=== PATIENT | male | born 1965 | race African-American/Black ===

== ENCOUNTER 2017-11-10 10:40 | Inpatient (IN) ==
[2017-11-12 12:55] VITALS: BP 118/83
== END 2017-11-12 15:35 | disposition home or self-care, planned readmission (81) | DRG 847 ==
LOC: N.4E 10:40
PROVIDERS: ADMIT Specialist; ATTEND Specialist

== ENCOUNTER 2017-11-24 07:00 | Inpatient (IN) ==
[2017-11-24 10:48] LABS: Basophils % 0.6 % (0.0-0.8); Eosinophils # 0.1 10*3/uL (0.0-0.87); Eosinophils % 1.4 % (0.00-10.9); Hematocrit 37.1 VOL% (42.0-52.0); Hemoglobin 11.8 GM/DL (14.0-18.0); Lymphocytes % 39.6 % (21.2-54.2); Mean Corpuscular HGB Conc 31.8 GM/DL (32-36); Mean Corpuscular Hemoglobin 27 PG (27-34); Mean Corpuscular Volume 84.5 FL (87-102); Mean Platelet Volume 10.5 FL (9.6-12.0); Monocytes # 0.4 10*3/uL (0.11-0.8); Monocytes % 7.5 % (1.7-12.7); Neutrophils # 2.6 10*3/uL (1.4-7.4); Neutrophils % 50.9 % (38.7-73.9); Platelet Count 382 T/CUMM (130-400); Red Blood Count 4.39 MC/CUMM (3.8-5.5); Red Cell Distribution Width 17.1 % (9.3-17.3); White Blood Count 5.1 T/CUMM (4-12)
[2017-11-24 11:06] LABS: Albumin 3.6 G/DL (3.4-5.0); Bilirubin,Total 0.5 MG/DL (0.2-1.0); Calcium 8.7 MG/DL (8.5-10.1); Osmolality,Calculated 274.7 MOS/KG (273-304); Potassium 3.7 MMOL/L (3.5-5.1)
[2017-11-24 11:11] LABS: Uric Acid 8.5 MG/DL (3.5-7.2)
[2017-11-24] MEDS ORDERED: GRANISETRON 1 MG/1 ML VIAL IV ONE (12:00)
[2017-11-24] MEDS ORDERED: DEXAMETHASONE 10 MG/1 ML VIAL IV ONE (12:00)
[2017-11-24] MEDS ORDERED: OXALIPLATIN 170 MG in DEXTROSE 5% 250 ML IV ONE (12:30)
[2017-11-24] MEDS ORDERED: LEUCOVORIN INJ 700 MG in DEXTROSE 5% 250 ML IV ONE (12:30)
[2017-11-24] MEDS ORDERED: FLUOROURACIL 800 MG in SYRINGE 1 EACH IV ONE (12:30)
[2017-11-24 15:21] LABS: Apearance,Urine CLEAR (Clear); Bilirubin,Urine Negative (Negative); Blood, Urine Negative (Negative); Glucose,Urine (UA) Negative (Negative); Ketones,Urine Negative (Negative); Mucus,Urine Occasional /LPF (Occasional); Nitrite,Urine Negative (Negative); Protein,Urine Negative; RBC,Urine 1 /HPF (0-4); Urine Color Yellow (Yellow); Urine Specific Gravity 1.009 (1.001-1.035); Urine Urobilinogen < 2.0 EU/DL (0.2-1.0); WBC,Urine <1 /HPF (0-6)
[2017-11-24] MEDS: FLUOROURACIL 2,400 MG in SODIUM CHLORIDE 0.9% 1,000 ML IV SCH (16:56)
[2017-11-25] MEDS: FLUOROURACIL 2,400 MG in SODIUM CHLORIDE 0.9% 1,000 ML IV SCH (18:36)
[2017-11-26 15:40] VITALS: BP 129/80
[2017-11-26] MEDS ORDERED: HEPARIN LOCK FLUSH 500 UNIT/5 ML SYRINGE IV ONE (16:51)
[2017-11-26] MEDS ORDERED: HEPARIN LOCK FLUSH 500 UNIT/5 ML SYRINGE IV PRN (17:04)
== END 2017-11-26 17:03 | disposition home or self-care (01) | DRG 847 ==
LOC: EDSTATUS 07:00 → N.4E 08:10
PROVIDERS: ADMIT Specialist; ATTEND Specialist

== ENCOUNTER 2020-11-26 18:55 | Inpatient (IN) ==
[2020-11-26] MEDS ORDERED: SODIUM CHLORIDE 0.9% 1,000 ML IV STA ×2 (20:23→22:30)
[2020-11-26] MEDS ORDERED: AZITHROMYCIN INJ 500 MG in SODIUM CHLORIDE 0.9% 250 ML IV STA (20:25)
[2020-11-26 21:02] LABS: ABG HCO3 21.8 MMOL/L (20-26); ABG Oxygen Saturation 93.6 % (95-100); ABG PCO2 33.8 MM HG (35-48); ABG PH 7.402 (7.35-7.45); ABG PO2 72.3 MM HG (80-95); ABG TCO2 18.9 MMOL/L (23-27)
[2020-11-26 21:45] LABS: Basophils % 0.2 % (0.0-0.8); Eosinophils % 0.1 % (0.00-10.9); Hematocrit 37.2 VOL% (42.0-52.0); Hemoglobin 11.8 GM/DL (14.0-18.0); Immature Granulocytes % 6.5 %; Immature Granulocytes Absolute 1.14 #; Lymphocytes # 2.7 10*3/uL (1.4-4.0); Lymphocytes % 15.4 % (21.2-54.2); Mean Corpuscular HGB Conc 31.7 GM/DL (32-36); Mean Corpuscular Volume 87.1 FL (87-102); Mean Platelet Volume 10.5 FL (9.6-12.0); Monocytes % 4.8 % (1.7-12.7); NRBC # 0.43 10*3/uL; Platelet Count 447 T/CUMM (130-400); Red Blood Count 4.27 MC/CUMM (3.8-5.5); Red Cell Distribution Width 14.7 % (9.3-17.3); White Blood Count 17.6 T/CUMM (4-12)
[2020-11-26 22:05] LABS: PT Patient Result 11.5 SECS (10.5-12.0); Partial Thromboplastin Time 23.6 SECS (23.9-33.8)
[2020-11-26 22:17] LABS: Albumin 2.9 G/DL (3.4-5.0); Calcium 9.1 MG/DL (8.5-10.1); Osmolality,Calculated 304.4 MOS/KG (273-304); Total Protein 9.1 G/DL (6.4-8.2)
[2020-11-26 22:23] LABS: Band Neutrophils 1 % (0-10); Lymphocytes 17 % (20-55); Metamyelocytes 2 %; Nucleated Red Blood Cells 2 (0-5); Segmented Neutrophils 76 % (50-85); Total Cells Counted 100
[2020-11-26 22:25] LABS: Hypochromasia 1+; Platelet Estimate Increased; Reactive Lymphocytes 1+
[2020-11-26] MEDS ORDERED: DEXAMETHASONE 10 MG/1 ML VIAL IV ONE (22:30)
[2020-11-26] MEDS ORDERED: ENOXAPARIN 30 MG/0.3 ML SYRINGE SUBCUT STA (22:31)
[2020-11-26] MEDS ORDERED: ONDANSETRON 4 MG/2 ML VIAL IV PRN (23:23)
[2020-11-26] MEDS ORDERED: ALBUTEROL 2.5 MG/3 ML NEB RESP TX PRN (23:23)
[2020-11-26] MEDS: MEROPENEM 500 MG in SODIUM CHLORIDE 0.9% 100 ML IV SCH (23:30)
[2020-11-27] MEDS: FAMOTIDINE 20 MG/2 ML VIAL IV SCH ×2 (01:40→09:51)
[2020-11-27] MEDS: LACTATED RINGERS 1,000 ML IV SCH ×3 (01:42→18:31)
[2020-11-27 05:45] LABS: Basophils % 0.2 % (0.0-0.8); Hematocrit 33.1 VOL% (42.0-52.0); Hemoglobin 10.5 GM/DL (14.0-18.0); Immature Granulocytes % 5.7 %; Immature Granulocytes Absolute 0.96 #; Lymphocytes # 2.5 10*3/uL (1.4-4.0); Lymphocytes % 14.7 % (21.2-54.2); Mean Corpuscular HGB Conc 31.7 GM/DL (32-36); Mean Corpuscular Volume 88.5 FL (87-102); Mean Platelet Volume 10.5 FL (9.6-12.0); Monocytes % 5.9 % (1.7-12.7); NRBC # 0.35 10*3/uL; Neutrophils % 73.5 % (38.7-73.9); Platelet Count 390 T/CUMM (130-400); Red Blood Count 3.74 MC/CUMM (3.8-5.5); Red Cell Distribution Width 14.6 % (9.3-17.3); White Blood Count 16.8 T/CUMM (4-12)
[2020-11-27 05:55] LABS: Albumin 2.5 G/DL (3.4-5.0); Bilirubin,Total 0.9 MG/DL (0.20-1.00); Calcium 8.7 MG/DL (8.5-10.1); Potassium 4.4 MMOL/L (3.5-5.1); Total Protein 8.6 G/DL (6.4-8.2)
[2020-11-27 06:49] LABS: Band Neutrophils 1 % (0-10); Lymphocytes 19 % (20-55); Metamyelocytes 1 %; Nucleated Red Blood Cells 1 (0-5); Segmented Neutrophils 74 % (50-85); Total Cells Counted 100
[2020-11-27 06:51] LABS: Reactive Lymphocytes 1+
[2020-11-27 06:52] LABS: Hypochromasia 1+; Platelet Estimate Normal
[2020-11-27 06:53] LABS: Giant Platelets Few
[2020-11-27] MEDS: MEROPENEM 500 MG in SODIUM CHLORIDE 0.9% 100 ML IV SCH ×3 (07:34→23:54)
[2020-11-27] MEDS ORDERED: DEXAMETHASONE 10 MG/1 ML VIAL IV SCH (09:00)
[2020-11-27] MEDS ORDERED: ENOXAPARIN 60 MG/0.6 ML SYRINGE SUBCUT SCH (09:00)
[2020-11-27] MEDS ORDERED: PNEUMOCOCCAL VACCINE (13 VALENT) 0.5 ML SYRINGE IM ONE (09:07)
[2020-11-27] MEDS: DEXAMETHASONE 10 MG/1 ML VIAL IV SCH (09:51)
[2020-11-27] MEDS: ASCORBIC ACID 500 MG TABLET PO SCH ×2 (09:52→21:48)
[2020-11-27] MEDS: CETIRIZINE 10 MG TABLET PO SCH (09:52)
[2020-11-27] MEDS: ZINC GLUCONATE 50 MG TABLET PO SCH (09:52)
[2020-11-27] MEDS: CHOLECALCIFEROL 1,000 UNIT TABLET PO SCH (09:52)
[2020-11-27] MEDS: ENOXAPARIN 80 MG/0.8 ML SYRINGE SUBCUT SCH (21:48)
[2020-11-28 05:44] LABS: Basophils % 0.2 % (0.0-0.8); Hematocrit 32.9 VOL% (42.0-52.0); Hemoglobin 10.3 GM/DL (14.0-18.0); Immature Granulocytes % 6.9 %; Lymphocytes # 1.9 10*3/uL (1.4-4.0); Lymphocytes % 9.8 % (21.2-54.2); Mean Corpuscular HGB Conc 31.3 GM/DL (32-36); Mean Corpuscular Volume 88.7 FL (87-102); Mean Platelet Volume 10.9 FL (9.6-12.0); Neutrophils % 78.1 % (38.7-73.9); Platelet Count 290 T/CUMM (130-400); Red Blood Count 3.71 MC/CUMM (3.8-5.5); Red Cell Distribution Width 14.6 % (9.3-17.3)
[2020-11-28 05:57] LABS: Albumin 2.3 G/DL (3.4-5.0); Bilirubin,Total 0.6 MG/DL (0.20-1.00); Calcium 9.2 MG/DL (8.5-10.1); Osmolality,Calculated 301.4 MOS/KG (273-304); Potassium 4.3 MMOL/L (3.5-5.1); Total Protein 8.1 G/DL (6.4-8.2)
[2020-11-28] MEDS: LACTATED RINGERS 1,000 ML IV SCH ×2 (05:58→18:34)
[2020-11-28 05:59] LABS: Ferritin 678.3 ng/ml (26-388)
[2020-11-28 06:15] LABS: Band Neutrophils 1 % (0-10); Lymphocytes 13 % (20-55); Nucleated Red Blood Cells 3 (0-5); Platelet Estimate Normal; Segmented Neutrophils 80 % (50-85); Total Cells Counted 100
[2020-11-28] MEDS: MEROPENEM 500 MG in SODIUM CHLORIDE 0.9% 100 ML IV SCH ×3 (09:10→22:44)
[2020-11-28] MEDS: DEXAMETHASONE 10 MG/1 ML VIAL IV SCH (09:12)
[2020-11-28] MEDS: FAMOTIDINE 20 MG/2 ML VIAL IV SCH (09:12)
[2020-11-28] MEDS: CHOLECALCIFEROL 1,000 UNIT TABLET PO SCH (09:13)
[2020-11-28] MEDS: ZINC GLUCONATE 50 MG TABLET PO SCH (09:13)
[2020-11-28] MEDS: CETIRIZINE 10 MG TABLET PO SCH (09:13)
[2020-11-28] MEDS: ASCORBIC ACID 500 MG TABLET PO SCH ×2 (09:13→20:39)
[2020-11-28] MEDS ORDERED: LORazepam 2 MG/1 ML VIAL IV PRN (09:24)
[2020-11-28] MEDS ORDERED: LORazepam 2 MG/1 ML VIAL ONE (09:25)
[2020-11-28 10:15] LABS: ABG HCO3 23.5 MMOL/L (20-26); ABG Oxygen Saturation 89.2 % (95-100); ABG PCO2 38.2 MM HG (35-48); ABG PH 7.399 (7.35-7.45); ABG PO2 60.6 MM HG (80-95); ABG TCO2 21.4 MMOL/L (23-27); Allen Test Positive; Pt O2 Delivery Device BIPAP
[2020-11-28] MEDS: hydrALAZINE 20 MG/1 ML VIAL IV PRN ×2 (14:10→20:37)
[2020-11-28] MEDS ORDERED: MORPHINE 2 MG/1 ML SYRINGE IV ONE (15:56)
[2020-11-28] MEDS: LORazepam 2 MG/1 ML VIAL IV PRN ×2 (17:15→18:41)
[2020-11-28] MEDS ORDERED: ZIPRASIDONE 20 MG/1 ML VIAL IM ONE ×2 (17:20→18:58)
[2020-11-28] MEDS: ENOXAPARIN 80 MG/0.8 ML SYRINGE SUBCUT SCH (20:37)
[2020-11-29] MEDS: LACTATED RINGERS 1,000 ML IV SCH ×2 (01:45→04:34)
[2020-11-29] MEDS: LORazepam 2 MG/1 ML VIAL IV PRN ×2 (04:44→08:44)
[2020-11-29] MEDS ORDERED: ZIPRASIDONE 20 MG/1 ML VIAL IM ONE (05:15)
[2020-11-29 05:54] LABS: Basophils # 0.1 10*3/uL (0.0-0.2); Basophils % 0.4 % (0.0-0.8); Hematocrit 33.4 VOL% (42.0-52.0); Hemoglobin 11.1 GM/DL (14.0-18.0); Immature Granulocytes % 10.3 %; Immature Granulocytes Absolute 2.11 #; Lymphocytes # 1.5 10*3/uL (1.4-4.0); Lymphocytes % 7.5 % (21.2-54.2); Mean Corpuscular HGB Conc 33.2 GM/DL (32-36); Mean Corpuscular Volume 87.7 FL (87-102); Mean Platelet Volume 10.8 FL (9.6-12.0); Monocytes % 3.5 % (1.7-12.7); NRBC # 1.31 10*3/uL; Neutrophils % 78.3 % (38.7-73.9); Platelet Count 249 T/CUMM (130-400); Red Blood Count 3.81 MC/CUMM (3.8-5.5); Red Cell Distribution Width 14.6 % (9.3-17.3); White Blood Count 20.5 T/CUMM (4-12)
[2020-11-29 06:07] LABS: Bilirubin,Urine Negative (Negative); Blood, Urine Moderate mg/dL (Negative); Glucose,Urine (UA) Negative (Negative); Ketones,Urine Negative (Negative); Nitrite,Urine Negative (Negative); Protein,Urine 30 MG/DL; RBC,Urine 5 /HPF (0-4); Urine Appearance CLEAR (Clear); Urine Color Yellow (Yellow); Urine Specific Gravity 1.017 (1.001-1.035); Urine Urobilinogen < 2.0 EU/DL (0.2-1.0)
[2020-11-29 06:16] LABS: Albumin 2.2 G/DL (3.4-5.0); Bilirubin,Total 1.1 MG/DL (0.20-1.00); Ferritin 581.9 ng/ml (26-388); Osmolality,Calculated 309.3 MOS/KG (273-304); Potassium 3.8 MMOL/L (3.5-5.1); Total Protein 8.2 G/DL (6.4-8.2)
[2020-11-29 06:42] LABS: Band Neutrophils 5 % (0-10); Hypochromasia 3+; Lymphocytes 9 % (20-55); Metamyelocytes 1 %; Nucleated Red Blood Cells 8 (0-5); Platelet Estimate Normal; Segmented Neutrophils 83 % (50-85); Total Cells Counted 100
[2020-11-29] MEDS: MEROPENEM 500 MG in SODIUM CHLORIDE 0.9% 100 ML IV SCH ×2 (08:23→18:06)
[2020-11-29] MEDS: FAMOTIDINE 20 MG/2 ML VIAL IV SCH (08:23)
[2020-11-29] MEDS: CHOLECALCIFEROL 1,000 UNIT TABLET PO SCH (08:24)
[2020-11-29] MEDS: ZINC GLUCONATE 50 MG TABLET PO SCH (08:24)
[2020-11-29] MEDS: DEXAMETHASONE 10 MG/1 ML VIAL IV SCH (08:24)
[2020-11-29] MEDS: ASCORBIC ACID 500 MG TABLET PO SCH ×2 (08:24→21:58)
[2020-11-29] MEDS: CETIRIZINE 10 MG TABLET PO SCH (08:25)
[2020-11-29] MEDS: SODIUM CHLORIDE 0.45% 1,000 ML IV SCH (08:27)
[2020-11-29] MEDS ORDERED: ETOMIDATE 20 MG/10 ML VIAL IV ONE ×2 (09:53→10:07)
[2020-11-29] MEDS ORDERED: MIDAZOLAM 2 MG/2 ML VIAL ONE (09:54)
[2020-11-29] MEDS ORDERED: SUCCINYLCHOLINE 200 MG/10 ML VIAL ONE (09:54)
[2020-11-29] MEDS ORDERED: MIDAZOLAM 2 MG/2 ML VIAL IV ONE (10:06)
[2020-11-29] MEDS ORDERED: ROCURONIUM 100 MG/10 ML VIAL IV ONE ×2 (10:20→10:22)
[2020-11-29] MEDS ORDERED: SUCCINYLCHOLINE 200 MG/10 ML VIAL IV ONE (10:22)
[2020-11-29 11:39] LABS: ABG Base Excess -2.1 MMOL/L (-2.5-2.5); ABG HCO3 26.9 MMOL/L (20-26); ABG Oxygen Saturation 98.3 % (95-100); ABG PO2 173.1 MM HG (80-95)
[2020-11-29 11:40] LABS: ABG PH 7.208 (7.35-7.45)
[2020-11-29] MEDS ORDERED: DEXTROSE 50% 25 GM/50 ML VIAL IV PRN (12:04)
[2020-11-29] MEDS ORDERED: GLUCAGON 1 MG VIAL IM PRN (12:04)
[2020-11-29 14:27] LABS: ABG Base Excess -1.9 MMOL/L (-2.5-2.5); ABG HCO3 27.2 MMOL/L (20-26); ABG Oxygen Saturation 92.7 % (95-100); ABG TCO2 29.3 MMOL/L (23-27); Allen Test Positive; Pt O2 Delivery Device Ventilator
[2020-11-29 14:29] LABS: ABG PCO2 69.6 MM HG (35-48)
[2020-11-29] MEDS: AZITHROMYCIN INJ 500 MG in SODIUM CHLORIDE 0.9% 250 ML IV SCH (15:58)
[2020-11-29] MEDS: MIDAZOLAM 100 MG in SODIUM CHLORIDE 0.9% 80 ML IV PRN (17:17)
[2020-11-29] MEDS: INSULIN REGULAR 100 UNIT/ML SUBCUT SCH (18:43)
[2020-11-29] MEDS: ENOXAPARIN 80 MG/0.8 ML SYRINGE SUBCUT SCH (21:58)
[2020-11-30] MEDS: MIDAZOLAM 100 MG in SODIUM CHLORIDE 0.9% 80 ML IV PRN ×4 (00:01→21:12)
[2020-11-30] MEDS: SODIUM CHLORIDE 0.45% 1,000 ML IV SCH ×3 (01:06→11:13)
[2020-11-30] MEDS: INSULIN REGULAR 100 UNIT/ML SUBCUT SCH ×4 (01:28→17:20)
[2020-11-30] MEDS: MEROPENEM 500 MG in SODIUM CHLORIDE 0.9% 100 ML IV SCH ×3 (01:29→17:13)
[2020-11-30 04:29] LABS: ABG Base Excess -1.7 MMOL/L (-2.5-2.5); ABG Oxygen Saturation 97.8 % (95-100); ABG PCO2 65.3 MM HG (35-48); ABG PH 7.229 (7.35-7.45); ABG TCO2 25.2 MMOL/L (23-27); Allen Test Positive; Pt O2 Delivery Device Ventilator
[2020-11-30 05:18] LABS: Basophils # 0.1 10*3/uL (0.0-0.2); Basophils % 0.3 % (0.0-0.8); Hematocrit 31.4 VOL% (42.0-52.0); Hemoglobin 9.7 GM/DL (14.0-18.0); Immature Granulocytes % 8.6 %; Immature Granulocytes Absolute 1.54 #; Lymphocytes # 1.3 10*3/uL (1.4-4.0); Lymphocytes % 7.3 % (21.2-54.2); Mean Corpuscular HGB Conc 30.9 GM/DL (32-36); Mean Corpuscular Volume 93.5 FL (87-102); Monocytes % 2.7 % (1.7-12.7); NRBC # 0.86 10*3/uL; Neutrophils % 81.1 % (38.7-73.9); Platelet Count 185 T/CUMM (130-400); Red Blood Count 3.36 MC/CUMM (3.8-5.5); Red Cell Distribution Width 15.9 % (9.3-17.3); White Blood Count 17.9 T/CUMM (4-12)
[2020-11-30 05:58] LABS: Calcium 8.5 MG/DL (8.5-10.1); Osmolality,Calculated 316.9 MOS/KG (273-304); Potassium 5.4 MMOL/L (3.5-5.1)
[2020-11-30] MEDS ORDERED: SODIUM POLYSTYRENE SULFATE 15 GM/60 ML BOTTLE PO ONE (07:34)
[2020-11-30 07:54] LABS: Lymphocytes 7 % (20-55); Nucleated Red Blood Cells 2 (0-5); Segmented Neutrophils 93 % (50-85); Total Cells Counted 100
[2020-11-30 07:55] LABS: Hypochromasia 1+
[2020-11-30 07:56] LABS: Platelet Estimate Adequate; Polychromasia Slight; Target Cells Few
[2020-11-30] MEDS: CETIRIZINE 10 MG TABLET PO SCH (08:00)
[2020-11-30] MEDS: ASCORBIC ACID 500 MG TABLET PO SCH ×2 (08:00→20:58)
[2020-11-30] MEDS: DEXAMETHASONE 10 MG/1 ML VIAL IV SCH (08:00)
[2020-11-30] MEDS: CHOLECALCIFEROL 1,000 UNIT TABLET PO SCH (08:00)
[2020-11-30] MEDS: ZINC GLUCONATE 50 MG TABLET PO SCH (08:00)
[2020-11-30] MEDS: FAMOTIDINE 20 MG/2 ML VIAL IV SCH (09:32)
[2020-11-30] MEDS: AZITHROMYCIN INJ 500 MG in SODIUM CHLORIDE 0.9% 250 ML IV SCH (15:44)
[2020-11-30 17:26] LABS: Calcium 8.4 MG/DL (8.5-10.1); Osmolality,Calculated 318.1 MOS/KG (273-304); Potassium 5.8 MMOL/L (3.5-5.1)
[2020-11-30] MEDS ORDERED: SODIUM ZIRCONIUM CYCLOSILICATE 10 GM PACK PO ONE (18:09)
[2020-11-30] MEDS: ENOXAPARIN 80 MG/0.8 ML SYRINGE SUBCUT SCH (20:58)
[2020-12-01] MEDS: INSULIN REGULAR 100 UNIT/ML SUBCUT SCH ×4 (01:26→18:21)
[2020-12-01] MEDS: SODIUM CHLORIDE 0.45% 1,000 ML IV SCH (01:26)
[2020-12-01] MEDS: MEROPENEM 500 MG in SODIUM CHLORIDE 0.9% 100 ML IV SCH ×3 (01:28→18:21)
[2020-12-01 04:24] LABS: Basophils % 0.2 % (0.0-0.8); Hematocrit 29.9 VOL% (42.0-52.0); Hemoglobin 8.8 GM/DL (14.0-18.0); Immature Granulocytes % 8.8 %; Immature Granulocytes Absolute 1.46 #; Lymphocytes # 1.5 10*3/uL (1.4-4.0); Mean Corpuscular HGB Conc 29.4 GM/DL (32-36); Mean Corpuscular Volume 95.5 FL (87-102); Mean Platelet Volume 10.5 FL (9.6-12.0); Monocytes % 3.7 % (1.7-12.7); NRBC # 0.99 10*3/uL; Neutrophils % 78.3 % (38.7-73.9); Platelet Count 166 T/CUMM (130-400); Red Blood Count 3.13 MC/CUMM (3.8-5.5); Red Cell Distribution Width 16.4 % (9.3-17.3); White Blood Count 16.6 T/CUMM (4-12)
[2020-12-01 04:37] LABS: Albumin 1.9 G/DL (3.4-5.0); Bilirubin,Total 0.5 MG/DL (0.20-1.00); Calcium 8.5 MG/DL (8.5-10.1); Osmolality,Calculated 320.1 MOS/KG (273-304); Potassium 5.5 MMOL/L (3.5-5.1)
[2020-12-01 05:15] LABS: Lymphocytes 3 % (20-55); Nucleated Red Blood Cells 10 (0-5); Segmented Neutrophils 94 % (50-85); Total Cells Counted 100
[2020-12-01 05:16] LABS: Platelet Estimate Adequate
[2020-12-01 05:26] LABS: ABG Base Excess -0.6 MMOL/L (-2.5-2.5); ABG HCO3 27.6 MMOL/L (20-26); ABG Oxygen Saturation 98.5 % (95-100); ABG PCO2 66.3 MM HG (35-48); ABG PH 7.238 (7.35-7.45); ABG PO2 147.4 MM HG (80-95); ABG TCO2 29.7 MMOL/L (23-27); Allen Test Positive; Pt O2 Delivery Device Ventilator
[2020-12-01] MEDS: FAMOTIDINE 20 MG/2 ML VIAL IV SCH (08:00)
[2020-12-01] MEDS: ZINC GLUCONATE 50 MG TABLET PO SCH (08:00)
[2020-12-01] MEDS: CHOLECALCIFEROL 1,000 UNIT TABLET PO SCH (08:00)
[2020-12-01] MEDS: CETIRIZINE 10 MG TABLET PO SCH (08:00)
[2020-12-01] MEDS: DEXAMETHASONE 10 MG/1 ML VIAL IV SCH (08:01)
[2020-12-01] MEDS: ASCORBIC ACID 500 MG TABLET PO SCH ×3 (08:01→20:42)
[2020-12-01] MEDS: methylPREDNISolone SOD SUC 40 MG/1 ML VIAL IV SCH ×3 (08:25→20:42)
[2020-12-01] MEDS ORDERED: ASCORBIC ACID 500 MG/1 ML VIAL IV SCH (09:00)
[2020-12-01] MEDS ORDERED: SODIUM ZIRCONIUM CYCLOSILICATE 10 GM PACK PO ONE (11:51)
[2020-12-01] MEDS: MIDAZOLAM 100 MG in SODIUM CHLORIDE 0.9% 80 ML IV PRN ×2 (13:40→21:00)
[2020-12-01] MEDS: AZITHROMYCIN INJ 500 MG in SODIUM CHLORIDE 0.9% 250 ML IV SCH (15:32)
[2020-12-01] MEDS: ENOXAPARIN 80 MG/0.8 ML SYRINGE SUBCUT SCH (20:43)
[2020-12-02] MEDS: MEROPENEM 500 MG in SODIUM CHLORIDE 0.9% 100 ML IV SCH ×2 (00:19→08:00)
[2020-12-02] MEDS: INSULIN REGULAR 100 UNIT/ML SUBCUT SCH ×5 (00:20→23:49)
[2020-12-02] MEDS: methylPREDNISolone SOD SUC 40 MG/1 ML VIAL IV SCH ×4 (01:41→20:26)
[2020-12-02] MEDS: MIDAZOLAM 100 MG in SODIUM CHLORIDE 0.9% 80 ML IV PRN ×4 (01:50→23:47)
[2020-12-02 04:44] LABS: Basophils % 0.1 % (0.0-0.8); Hematocrit 30.4 VOL% (42.0-52.0); Hemoglobin 8.9 GM/DL (14.0-18.0); Immature Granulocytes % 7.6 %; Lymphocytes % 7.1 % (21.2-54.2); Mean Corpuscular HGB Conc 29.3 GM/DL (32-36); Mean Platelet Volume 11.6 FL (9.6-12.0); Monocytes % 2.8 % (1.7-12.7); NRBC # 0.81 10*3/uL; Neutrophils % 82.4 % (38.7-73.9); Platelet Count 204 T/CUMM (130-400); Red Cell Distribution Width 16.2 % (9.3-17.3); White Blood Count 14.5 T/CUMM (4-12)
[2020-12-02 04:53] LABS: ABG Base Excess -1.4 MMOL/L (-2.5-2.5); ABG HCO3 26.7 MMOL/L (20-26); ABG Oxygen Saturation 92.8 % (95-100); ABG PCO2 64.4 MM HG (35-48); ABG PH 7.236 (7.35-7.45); ABG PO2 75.5 MM HG (80-95); ABG TCO2 28.7 MMOL/L (23-27); Allen Test Positive; Pt O2 Delivery Device Ventilator
[2020-12-02 04:59] LABS: Calcium 8.5 MG/DL (8.5-10.1); Osmolality,Calculated 332.9 MOS/KG (273-304); Potassium 5.7 MMOL/L (3.5-5.1)
[2020-12-02 05:15] LABS: Ferritin 600.9 ng/ml (26-388)
[2020-12-02] MEDS: hydrALAZINE 20 MG/1 ML VIAL IV PRN (06:22)
[2020-12-02 07:45] LABS: Anisocytosis 2+; Band Neutrophils 10 % (0-10); Lymphocytes 9 % (20-55); Macrocytosis Slight; Metamyelocytes 2 %; Myelocytes 4 %; Nucleated Red Blood Cells 9 (0-5); Platelet Estimate Normal; Segmented Neutrophils 69 % (50-85); Smudge Cells 1+; Total Cells Counted 100
[2020-12-02] MEDS: CHOLECALCIFEROL 1,000 UNIT TABLET PO SCH (08:00)
[2020-12-02] MEDS: CETIRIZINE 10 MG TABLET PO SCH (08:00)
[2020-12-02] MEDS: ZINC GLUCONATE 50 MG TABLET PO SCH (08:00)
[2020-12-02] MEDS: ASCORBIC ACID 500 MG TABLET PO SCH ×2 (08:00→20:26)
[2020-12-02] MEDS: ACETAMINOPHEN 325 MG TABLET PO PRN ×2 (08:01→18:26)
[2020-12-02] MEDS: FAMOTIDINE 20 MG/2 ML VIAL IV SCH (08:02)
[2020-12-02] MEDS ORDERED: SODIUM POLYSTYRENE SULFATE 15 GM/60 ML BOTTLE PO ONE (09:04)
[2020-12-02 11:03] LABS: HIV Antigen/Antibody Result Nonreactive (Nonreactive)
[2020-12-02] MEDS ORDERED: SODIUM POLYSTYRENE SULFATE 15 GM/60 ML BOTTLE PO PRN (12:44)
[2020-12-02 13:03] LABS: Bilirubin,Urine Negative (Negative); Blood, Urine Moderate mg/dL (Negative); Glucose,Urine (UA) Negative (Negative); Ketones,Urine Negative (Negative); Mucus,Urine Occasional /LPF (Occasional); Nitrite,Urine Negative (Negative); Protein,Urine 30 MG/DL; RBC,Urine 27 /HPF (0-4); Urine Appearance Slightly Hazy (Clear); Urine Color Yellow (Yellow); Urine Specific Gravity 1.014 (1.001-1.035); Urine Urobilinogen < 2.0 EU/DL (0.2-1.0)
[2020-12-02] MEDS: AZITHROMYCIN INJ 500 MG in SODIUM CHLORIDE 0.9% 250 ML IV SCH (15:40)
[2020-12-02] MEDS ORDERED: DEXTROSE 5% IV ONE (20:00)
[2020-12-02] MEDS ORDERED: VANCOMYCIN IV ONE (20:00)
[2020-12-02] MEDS: MEROPENEM 500 MG in SODIUM CHLORIDE 0.9% 50 ML IV SCH (20:28)
[2020-12-03] MEDS: ACETAMINOPHEN 325 MG TABLET PO PRN (00:50)
[2020-12-03] MEDS: methylPREDNISolone SOD SUC 40 MG/1 ML VIAL IV SCH ×4 (02:07→20:14)
[2020-12-03] MEDS ORDERED: IBUPROFEN 600 MG TABLET PO PRN (02:21)
[2020-12-03] MEDS: MEROPENEM 500 MG in SODIUM CHLORIDE 0.9% 50 ML IV SCH (03:34)
[2020-12-03 04:27] LABS: Basophils % 0.1 % (0.0-0.8); Hematocrit 29.3 VOL% (42.0-52.0); Hemoglobin 8.5 GM/DL (14.0-18.0); Immature Granulocytes % 6.6 %; Lymphocytes % 8.3 % (21.2-54.2); Mean Corpuscular Volume 96.1 FL (87-102); Mean Platelet Volume 11.6 FL (9.6-12.0); Monocytes % 8.1 % (1.7-12.7); NRBC # 0.75 10*3/uL; Neutrophils % 76.9 % (38.7-73.9); Platelet Count 206 T/CUMM (130-400); Red Blood Count 3.05 MC/CUMM (3.8-5.5); Red Cell Distribution Width 16.1 % (9.3-17.3); White Blood Count 12.1 T/CUMM (4-12)
[2020-12-03 04:49] LABS: Calcium 8.2 MG/DL (8.5-10.1); Potassium 5.5 MMOL/L (3.5-5.1)
[2020-12-03 05:15] LABS: ABG Base Excess -1.2 MMOL/L (-2.5-2.5); ABG HCO3 27.5 MMOL/L (20-26); ABG PCO2 68.3 MM HG (35-48); ABG PH 7.222 (7.35-7.45); ABG PO2 87.1 MM HG (80-95); ABG TCO2 29.5 MMOL/L (23-27); Allen Test Positive; Pt O2 Delivery Device Ventilator
[2020-12-03] MEDS: INSULIN REGULAR 100 UNIT/ML SUBCUT SCH ×3 (05:49→18:30)
[2020-12-03] MEDS: MIDAZOLAM 100 MG in SODIUM CHLORIDE 0.9% 80 ML IV PRN ×3 (06:31→21:05)
[2020-12-03 06:50] LABS: Lymphocytes 13 % (20-55); Microcytosis 1+; Nucleated Red Blood Cells 14 (0-5); Platelet Estimate Adequate; Segmented Neutrophils 80 % (50-85); Target Cells Few; Total Cells Counted 100
[2020-12-03] MEDS: FAMOTIDINE 20 MG/2 ML VIAL IV SCH (08:36)
[2020-12-03] MEDS: CHOLECALCIFEROL 1,000 UNIT TABLET PO SCH (08:36)
[2020-12-03] MEDS: ZINC GLUCONATE 50 MG TABLET PO SCH (08:37)
[2020-12-03] MEDS: ASCORBIC ACID 500 MG TABLET PO SCH ×2 (08:37→20:14)
[2020-12-03] MEDS: CETIRIZINE 10 MG TABLET PO SCH (08:40)
[2020-12-03] MEDS ORDERED: diphenhydrAMINE 50 MG/1 ML VIAL IV ONE (10:30)
[2020-12-03] MEDS: LEVOFLOXACIN INJ 750 MG/150 ML PREMIX IV SCH (15:49)
[2020-12-03] MEDS ORDERED: MEROPENEM 500 MG in SODIUM CHLORIDE 0.9% 50 ML IV SCH (16:00)
[2020-12-03] MEDS ORDERED: DEXTROSE 5% IV PRN (17:00)
[2020-12-03] MEDS ORDERED: VANCOMYCIN IV PRN (17:00)
[2020-12-04] MEDS: INSULIN REGULAR 100 UNIT/ML SUBCUT SCH ×5 (00:55→23:41)
[2020-12-04] MEDS: methylPREDNISolone SOD SUC 40 MG/1 ML VIAL IV SCH ×4 (01:34→20:48)
[2020-12-04 04:36] LABS: Hematocrit 30.8 VOL% (42.0-52.0); Hemoglobin 9.1 GM/DL (14.0-18.0); Immature Granulocytes % 2.2 %; Immature Granulocytes Absolute 0.19 #; Lymphocytes # 0.4 10*3/uL (1.4-4.0); Lymphocytes % 4.8 % (21.2-54.2); Mean Corpuscular HGB Conc 29.5 GM/DL (32-36); Mean Corpuscular Volume 93.9 FL (87-102); Mean Platelet Volume 11.9 FL (9.6-12.0); Monocytes % 5.5 % (1.7-12.7); NRBC # 0.12 10*3/uL; Neutrophils % 87.5 % (38.7-73.9); Platelet Count 207 T/CUMM (130-400); Red Blood Count 3.28 MC/CUMM (3.8-5.5); Red Cell Distribution Width 15.8 % (9.3-17.3); White Blood Count 8.8 T/CUMM (4-12)
[2020-12-04 04:39] LABS: ABG Base Excess -0.4 MMOL/L (-2.5-2.5); ABG HCO3 24.1 MMOL/L (20-26); ABG Oxygen Saturation 96.8 % (95-100); ABG PCO2 63.2 MM HG (35-48); ABG PH 7.253 (7.35-7.45); ABG PO2 95.6 MM HG (80-95); ABG TCO2 26.1 MMOL/L (23-27)
[2020-12-04 04:55] LABS: Band Neutrophils 2 % (0-10); Lymphocytes 5 % (20-55); Nucleated Red Blood Cells 2 (0-5); Segmented Neutrophils 88 % (50-85); Total Cells Counted 100
[2020-12-04 04:56] LABS: Hypochromasia 1+; Microcytosis 1+; Platelet Estimate Normal; Target Cells Slight
[2020-12-04 05:00] LABS: Calcium 8.4 MG/DL (8.5-10.1); Osmolality,Calculated 343.9 MOS/KG (273-304); Potassium 5.8 MMOL/L (3.5-5.1)
[2020-12-04] MEDS: MIDAZOLAM 100 MG in SODIUM CHLORIDE 0.9% 80 ML IV PRN ×3 (05:00→19:45)
[2020-12-04] MEDS: CETIRIZINE 10 MG TABLET PO SCH (08:25)
[2020-12-04] MEDS: FAMOTIDINE 20 MG/2 ML VIAL IV SCH (08:26)
[2020-12-04] MEDS: ZINC GLUCONATE 50 MG TABLET PO SCH (08:26)
[2020-12-04] MEDS: CHOLECALCIFEROL 1,000 UNIT TABLET PO SCH (08:26)
[2020-12-04] MEDS: ASCORBIC ACID 500 MG TABLET PO SCH ×2 (08:26→20:49)
[2020-12-04] MEDS ORDERED: DEXTROSE 5% IV ONE (13:30)
[2020-12-04] MEDS ORDERED: VANCOMYCIN IV ONE (13:30)
[2020-12-04 23:31] LABS: Fungitell Quantitative Value < 31 pg/mL (<60 pg/mL)
[2020-12-05] MEDS: methylPREDNISolone SOD SUC 40 MG/1 ML VIAL IV SCH ×4 (01:48→20:11)
[2020-12-05] MEDS: MIDAZOLAM 100 MG in SODIUM CHLORIDE 0.9% 80 ML IV PRN ×3 (02:58→15:45)
[2020-12-05 03:18] LABS: ABG Base Excess 1.7 MMOL/L (-2.5-2.5); ABG HCO3 25.9 MMOL/L (20-26); ABG Oxygen Saturation 96.7 % (95-100); ABG PCO2 65.2 MM HG (35-48); ABG PH 7.272 (7.35-7.45); ABG PO2 96.6 MM HG (80-95); ABG TCO2 27.9 MMOL/L (23-27)
[2020-12-05 03:45] LABS: Hematocrit 31.1 VOL% (42.0-52.0); Hemoglobin 9.2 GM/DL (14.0-18.0); Immature Granulocytes % 1.9 %; Immature Granulocytes Absolute 0.14 #; Lymphocytes # 0.4 10*3/uL (1.4-4.0); Lymphocytes % 5.8 % (21.2-54.2); Mean Corpuscular HGB Conc 29.6 GM/DL (32-36); Mean Platelet Volume 12.2 FL (9.6-12.0); Monocytes % 8.3 % (1.7-12.7); NRBC # 0.09 10*3/uL; Platelet Count 202 T/CUMM (130-400); Red Blood Count 3.31 MC/CUMM (3.8-5.5); Red Cell Distribution Width 15.4 % (9.3-17.3); White Blood Count 7.2 T/CUMM (4-12)
[2020-12-05 05:35] LABS: Bilirubin,Total 0.4 MG/DL (0.20-1.00); Calcium 9.1 MG/DL (8.5-10.1); Potassium 5.9 MMOL/L (3.5-5.1); Total Protein 6.6 G/DL (6.4-8.2)
[2020-12-05] MEDS: INSULIN REGULAR 100 UNIT/ML SUBCUT SCH ×3 (05:52→18:24)
[2020-12-05] MEDS: ASCORBIC ACID 500 MG TABLET PO SCH ×2 (08:45→20:10)
[2020-12-05] MEDS: ZINC GLUCONATE 50 MG TABLET PO SCH (08:45)
[2020-12-05] MEDS: CHOLECALCIFEROL 1,000 UNIT TABLET PO SCH (08:45)
[2020-12-05] MEDS: FAMOTIDINE 20 MG/2 ML VIAL IV SCH (08:46)
[2020-12-05] MEDS: CETIRIZINE 10 MG TABLET PO SCH (11:55)
[2020-12-05] MEDS: INSULIN GLARGINE 100 UNIT/ML SUBCUT SCH (11:57)
[2020-12-05] MEDS: LEVOFLOXACIN INJ 750 MG/150 ML PREMIX IV SCH (14:53)
[2020-12-05] MEDS ORDERED: HEPARIN DRIP 25,000 UNITS/500 ML PREMIX IV SCH (18:00)
[2020-12-05] MEDS: MIDAZOLAM 100 MG in DEXTROSE 5% 80 ML IV PRN (23:25)
[2020-12-06] MEDS: INSULIN REGULAR 100 UNIT/ML SUBCUT SCH ×4 (00:06→18:04)
[2020-12-06 02:11] LABS: Hematocrit 29.7 VOL% (42.0-52.0); Hemoglobin 8.8 GM/DL (14.0-18.0); Immature Granulocytes Absolute 0.07 #; Lymphocytes # 0.3 10*3/uL (1.4-4.0); Lymphocytes % 4.2 % (21.2-54.2); Mean Corpuscular HGB Conc 29.6 GM/DL (32-36); Mean Corpuscular Volume 94.6 FL (87-102); Mean Platelet Volume 11.5 FL (9.6-12.0); Monocytes % 4.1 % (1.7-12.7); NRBC # 0.03 10*3/uL; Neutrophils % 90.7 % (38.7-73.9); Platelet Count 183 T/CUMM (130-400); Red Blood Count 3.14 MC/CUMM (3.8-5.5); White Blood Count 7.1 T/CUMM (4-12)
[2020-12-06] MEDS: methylPREDNISolone SOD SUC 40 MG/1 ML VIAL IV SCH ×2 (02:12→08:57)
[2020-12-06 02:48] LABS: Albumin 1.9 G/DL (3.4-5.0); Bilirubin,Total 0.4 MG/DL (0.20-1.00); Calcium 8.6 MG/DL (8.5-10.1); Total Protein 6.4 G/DL (6.4-8.2)
[2020-12-06 03:30] LABS: Hypochromasia Slight; Lymphocytes 2 % (20-55); Nucleated Red Blood Cells 1 (0-5); Platelet Estimate Normal; Segmented Neutrophils 96 % (50-85); Total Cells Counted 100
[2020-12-06 03:31] LABS: Polychromasia Slight; Stomatocytes Slight; Target Cells Few
[2020-12-06 03:32] LABS: Basophilic Stippling Slight
[2020-12-06 03:33] LABS: Howell-Jolly Bodies Slight
[2020-12-06 05:10] LABS: ABG Base Excess 3.8 MMOL/L (-2.5-2.5); ABG HCO3 30.9 MMOL/L (20-26); ABG Oxygen Saturation 96.7 % (95-100); ABG PCO2 61.4 MM HG (35-48); ABG PH 7.319 (7.35-7.45); ABG TCO2 32.7 MMOL/L (23-27); Allen Test Positive; Pt O2 Delivery Device Ventilator
[2020-12-06] MEDS: CHOLECALCIFEROL 1,000 UNIT TABLET PO SCH (08:53)
[2020-12-06] MEDS: ZINC GLUCONATE 50 MG TABLET PO SCH (08:53)
[2020-12-06] MEDS: ASCORBIC ACID 500 MG TABLET PO SCH ×2 (08:54→20:31)
[2020-12-06] MEDS: INSULIN GLARGINE 100 UNIT/ML SUBCUT SCH (08:54)
[2020-12-06] MEDS: FAMOTIDINE 20 MG/2 ML VIAL IV SCH (08:54)
[2020-12-06] MEDS: CETIRIZINE 10 MG TABLET PO SCH (09:00)
[2020-12-06] MEDS ORDERED: VANCOMYCIN INJ 2,250 MG in SODIUM CHLORIDE 0.9% 500 ML IV ONE (12:00)
[2020-12-06] MEDS: MIDAZOLAM 100 MG in DEXTROSE 5% 80 ML IV PRN ×2 (13:22→20:37)
[2020-12-06] MEDS: LEVOFLOXACIN INJ 750 MG/150 ML PREMIX IV SCH (15:17)
[2020-12-06 16:44] LABS: Hematocrit 29.4 VOL% (42.0-52.0); Hemoglobin 8.7 GM/DL (14.0-18.0)
[2020-12-06 17:16] LABS: Herpesvirus 7 IgM Ab by IFA <1:20
[2020-12-06] MEDS ORDERED: methylPREDNISolone SOD SUC 40 MG/1 ML VIAL ONE (19:30)
[2020-12-06] MEDS: methylPREDNISolone SOD SUC 125 MG/2 ML VIAL IV SCH (20:31)
[2020-12-07] MEDS: INSULIN REGULAR 100 UNIT/ML SUBCUT SCH ×5 (00:17→23:56)
[2020-12-07] MEDS: ACETAMINOPHEN 325 MG TABLET PO PRN (01:13)
[2020-12-07] MEDS: MIDAZOLAM 100 MG in DEXTROSE 5% 80 ML IV PRN ×2 (03:41→09:43)
[2020-12-07 04:30] LABS: ABG Base Excess 4.9 MMOL/L (-2.5-2.5); ABG HCO3 28.9 MMOL/L (20-26); ABG Oxygen Saturation 97.2 % (95-100); ABG PCO2 62.1 MM HG (35-48); ABG PH 7.325 (7.35-7.45); ABG TCO2 30.1 MMOL/L (23-27)
[2020-12-07 05:31] LABS: Hemoglobin 8.5 GM/DL (14.0-18.0); Immature Granulocytes % 0.7 %; Immature Granulocytes Absolute 0.05 #; Lymphocytes # 0.4 10*3/uL (1.4-4.0); Lymphocytes % 5.4 % (21.2-54.2); Mean Corpuscular HGB Conc 29.3 GM/DL (32-36); Mean Corpuscular Volume 95.4 FL (87-102); Mean Platelet Volume 12.3 FL (9.6-12.0); Monocytes % 7.5 % (1.7-12.7); NRBC # 0.04 10*3/uL; Neutrophils % 86.4 % (38.7-73.9); Platelet Count 159 T/CUMM (130-400); Red Blood Count 3.04 MC/CUMM (3.8-5.5); Red Cell Distribution Width 14.6 % (9.3-17.3)
[2020-12-07 05:59] LABS: Bilirubin,Total 0.4 MG/DL (0.20-1.00); Calcium 8.7 MG/DL (8.5-10.1); Osmolality,Calculated 333.4 MOS/KG (273-304); Potassium 5.9 MMOL/L (3.5-5.1)
[2020-12-07] MEDS: ZINC GLUCONATE 50 MG TABLET PO SCH (09:07)
[2020-12-07] MEDS: CETIRIZINE 10 MG TABLET PO SCH (09:07)
[2020-12-07] MEDS: CHOLECALCIFEROL 1,000 UNIT TABLET PO SCH (09:07)
[2020-12-07] MEDS: INSULIN GLARGINE 100 UNIT/ML SUBCUT SCH (09:07)
[2020-12-07] MEDS: methylPREDNISolone SOD SUC 125 MG/2 ML VIAL IV SCH (09:08)
[2020-12-07] MEDS: FAMOTIDINE 20 MG/2 ML VIAL IV SCH (09:08)
[2020-12-07] MEDS: ASCORBIC ACID 500 MG TABLET PO SCH ×2 (09:09→21:18)
[2020-12-07] MEDS: DEXTROSE 5% 1,000 ML IV SCH (11:32)
[2020-12-07] MEDS: DEXTROSE 5% IV SCH (15:36)
[2020-12-07] MEDS: VANCOMYCIN IV SCH (15:36)
[2020-12-07] MEDS: LEVOFLOXACIN INJ 750 MG/150 ML PREMIX IV SCH (15:50)
[2020-12-07] MEDS: NYSTATIN 500,000 UNIT/5 ML UDCUP SWISH/SWAL SCH (21:18)
[2020-12-07] MEDS: methylPREDNISolone SOD SUC 40 MG/1 ML VIAL IV SCH (21:18)
[2020-12-08] MEDS: MIDAZOLAM 100 MG in DEXTROSE 5% 80 ML IV PRN ×4 (00:20→21:19)
[2020-12-08 04:10] LABS: Hematocrit 28.4 VOL% (42.0-52.0); Hemoglobin 8.3 GM/DL (14.0-18.0); Immature Granulocytes % 0.7 %; Immature Granulocytes Absolute 0.07 #; Lymphocytes # 1.1 10*3/uL (1.4-4.0); Lymphocytes % 11.1 % (21.2-54.2); Mean Corpuscular HGB Conc 29.2 GM/DL (32-36); Mean Corpuscular Volume 95.6 FL (87-102); Mean Platelet Volume 12.5 FL (9.6-12.0); Monocytes % 8.6 % (1.7-12.7); NRBC # 0.03 10*3/uL; Neutrophils % 79.6 % (38.7-73.9); Platelet Count 148 T/CUMM (130-400); Red Blood Count 2.97 MC/CUMM (3.8-5.5); Red Cell Distribution Width 14.4 % (9.3-17.3)
[2020-12-08 04:16] LABS: ABG Base Excess 7.3 MMOL/L (-2.5-2.5); ABG HCO3 33.5 MMOL/L (20-26); ABG Oxygen Saturation 97.7 % (95-100); ABG PCO2 57.4 MM HG (35-48); ABG PH 7.384 (7.35-7.45); ABG PO2 115.9 MM HG (80-95); ABG TCO2 35.3 MMOL/L (23-27)
[2020-12-08 04:40] LABS: Bilirubin,Total 1.3 MG/DL (0.20-1.00); Calcium 8.7 MG/DL (8.5-10.1); Osmolality,Calculated 333.3 MOS/KG (273-304); Total Protein 6.1 G/DL (6.4-8.2)
[2020-12-08 04:44] LABS: Potassium 4.9 MMOL/L (3.5-5.1)
[2020-12-08] MEDS: INSULIN REGULAR 100 UNIT/ML SUBCUT SCH ×3 (05:24→17:33)
[2020-12-08] MEDS: FAMOTIDINE 20 MG/2 ML VIAL IV SCH (09:37)
[2020-12-08] MEDS: methylPREDNISolone SOD SUC 40 MG/1 ML VIAL IV SCH ×2 (09:37→21:20)
[2020-12-08] MEDS: INSULIN GLARGINE 100 UNIT/ML SUBCUT SCH (09:37)
[2020-12-08] MEDS: CETIRIZINE 10 MG TABLET PO SCH (09:37)
[2020-12-08] MEDS: CHOLECALCIFEROL 1,000 UNIT TABLET PO SCH (09:37)
[2020-12-08] MEDS: ZINC GLUCONATE 50 MG TABLET PO SCH (09:37)
[2020-12-08] MEDS: NYSTATIN 500,000 UNIT/5 ML UDCUP SWISH/SWAL SCH ×4 (09:37→21:20)
[2020-12-08] MEDS: ASCORBIC ACID 500 MG TABLET PO SCH ×2 (09:37→21:20)
[2020-12-08] MEDS: DEXTROSE 5% 1,000 ML IV SCH ×2 (11:22→21:20)
[2020-12-08] MEDS: DEXTROSE 5% IV SCH (11:26)
[2020-12-08] MEDS: VANCOMYCIN IV SCH (11:26)
[2020-12-08] MEDS: LEVOFLOXACIN INJ 750 MG/150 ML PREMIX IV SCH (14:40)
[2020-12-09] MEDS: INSULIN REGULAR 100 UNIT/ML SUBCUT SCH ×5 (00:29→23:53)
[2020-12-09] MEDS: VANCOMYCIN IV SCH ×2 (02:19→22:28)
[2020-12-09] MEDS: DEXTROSE 5% IV SCH ×2 (02:19→22:28)
[2020-12-09 04:17] LABS: ABG Base Excess 6.9 MMOL/L (-2.5-2.5); ABG HCO3 30.7 MMOL/L (20-26); ABG Oxygen Saturation 99.1 % (95-100); ABG PCO2 59.5 MM HG (35-48); ABG PH 7.361 (7.35-7.45); ABG TCO2 31.4 MMOL/L (23-27)
[2020-12-09] MEDS: MIDAZOLAM 100 MG in DEXTROSE 5% 80 ML IV PRN ×3 (04:50→17:59)
[2020-12-09 04:57] LABS: Hematocrit 28.3 VOL% (42.0-52.0); Hemoglobin 8.3 GM/DL (14.0-18.0); Immature Granulocytes Absolute 0.09 #; Lymphocytes # 0.8 10*3/uL (1.4-4.0); Lymphocytes % 8.2 % (21.2-54.2); Mean Corpuscular HGB Conc 29.3 GM/DL (32-36); Mean Platelet Volume 12.4 FL (9.6-12.0); Monocytes % 5.1 % (1.7-12.7); Neutrophils % 85.7 % (38.7-73.9); Platelet Count 145 T/CUMM (130-400); Red Blood Count 2.98 MC/CUMM (3.8-5.5); White Blood Count 9.2 T/CUMM (4-12)
[2020-12-09 05:19] LABS: Albumin 2.1 G/DL (3.4-5.0); Bilirubin,Total 0.4 MG/DL (0.20-1.00); Calcium 8.5 MG/DL (8.5-10.1); Osmolality,Calculated 320.1 MOS/KG (273-304); Potassium 5.2 MMOL/L (3.5-5.1); Total Protein 6.2 G/DL (6.4-8.2)
[2020-12-09] MEDS: DEXTROSE 5% 1,000 ML IV SCH ×2 (05:50→18:01)
[2020-12-09] MEDS: FAMOTIDINE 20 MG/2 ML VIAL IV SCH (08:20)
[2020-12-09] MEDS: methylPREDNISolone SOD SUC 40 MG/1 ML VIAL IV SCH ×2 (08:20→20:04)
[2020-12-09] MEDS: NYSTATIN 500,000 UNIT/5 ML UDCUP SWISH/SWAL SCH ×4 (08:21→20:04)
[2020-12-09] MEDS: CHOLECALCIFEROL 1,000 UNIT TABLET PO SCH (08:22)
[2020-12-09] MEDS: ZINC GLUCONATE 50 MG TABLET PO SCH (08:22)
[2020-12-09] MEDS: ASCORBIC ACID 500 MG TABLET PO SCH ×2 (08:22→20:04)
[2020-12-09] MEDS: INSULIN GLARGINE 100 UNIT/ML SUBCUT SCH (08:23)
[2020-12-09] MEDS: CETIRIZINE 10 MG TABLET PO SCH (08:27)
[2020-12-09] MEDS ORDERED: diphenhydrAMINE 50 MG/1 ML VIAL ONE (09:29)
[2020-12-09] MEDS ORDERED: SUCCINYLCHOLINE 200 MG/10 ML VIAL ONE (09:30)
[2020-12-09] MEDS ORDERED: diphenhydrAMINE 50 MG/1 ML VIAL IV ONE (09:36)
[2020-12-09] MEDS ORDERED: ETOMIDATE 20 MG/10 ML VIAL IV ONE (09:36)
[2020-12-09] MEDS ORDERED: SUCCINYLCHOLINE 200 MG/10 ML VIAL IV ONE (09:36)
[2020-12-09 10:18] LABS: ABG Base Excess 4.1 MMOL/L (-2.5-2.5); ABG HCO3 28.1 MMOL/L (20-26); ABG Oxygen Saturation 96.4 % (95-100); ABG PH 7.272 (7.35-7.45); ABG PO2 96.1 MM HG (80-95); ABG TCO2 30.7 MMOL/L (23-27)
[2020-12-09 10:20] LABS: ABG PCO2 70.7 MM HG (35-48)
[2020-12-09] MEDS: LEVOFLOXACIN INJ 750 MG/150 ML PREMIX IV SCH (15:30)
[2020-12-10] MEDS: MIDAZOLAM 100 MG in DEXTROSE 5% 80 ML IV PRN ×3 (01:10→17:03)
[2020-12-10 04:38] LABS: Hematocrit 24.8 VOL% (42.0-52.0); Hemoglobin 7.4 GM/DL (14.0-18.0); Immature Granulocytes % 0.7 %; Immature Granulocytes Absolute 0.07 #; Lymphocytes # 0.4 10*3/uL (1.4-4.0); Lymphocytes % 4.4 % (21.2-54.2); Mean Corpuscular HGB Conc 29.8 GM/DL (32-36); Mean Corpuscular Volume 94.7 FL (87-102); Monocytes % 4.2 % (1.7-12.7); NRBC # 0.02 10*3/uL; Neutrophils % 90.7 % (38.7-73.9); Platelet Count 142 T/CUMM (130-400); Red Blood Count 2.62 MC/CUMM (3.8-5.5); Red Cell Distribution Width 14.1 % (9.3-17.3); White Blood Count 9.6 T/CUMM (4-12)
[2020-12-10 04:55] LABS: Calcium 8.3 MG/DL (8.5-10.1)
[2020-12-10 04:58] LABS: Hypochromasia 1+; Lymphocytes 1 % (20-55); Microcytosis 1+; Platelet Estimate Adequate; Segmented Neutrophils 97 % (50-85); Total Cells Counted 100
[2020-12-10 04:59] LABS: Osmolality,Calculated 320.7 MOS/KG (273-304)
[2020-12-10 05:05] LABS: ABG HCO3 29.6 MMOL/L (20-26); ABG Oxygen Saturation 98.9 % (95-100); ABG PCO2 57.1 MM HG (35-48); ABG PH 7.332 (7.35-7.45); ABG PO2 185.8 MM HG (80-95); ABG TCO2 31.3 MMOL/L (23-27)
[2020-12-10] MEDS: INSULIN REGULAR 100 UNIT/ML SUBCUT SCH ×4 (06:29→23:57)
[2020-12-10] MEDS: DEXTROSE 5% 1,000 ML IV SCH (07:14)
[2020-12-10] MEDS: methylPREDNISolone SOD SUC 40 MG/1 ML VIAL IV SCH ×2 (08:07→20:40)
[2020-12-10] MEDS: FAMOTIDINE 20 MG/2 ML VIAL IV SCH (08:15)
[2020-12-10] MEDS: CHOLECALCIFEROL 1,000 UNIT TABLET PO SCH (08:17)
[2020-12-10] MEDS: NYSTATIN 500,000 UNIT/5 ML UDCUP SWISH/SWAL SCH ×4 (08:17→20:40)
[2020-12-10] MEDS: ZINC GLUCONATE 50 MG TABLET PO SCH (08:17)
[2020-12-10] MEDS: ASCORBIC ACID 500 MG TABLET PO SCH ×2 (08:17→20:40)
[2020-12-10] MEDS: CETIRIZINE 10 MG TABLET PO SCH (08:17)
[2020-12-10] MEDS: INSULIN GLARGINE 100 UNIT/ML SUBCUT SCH (08:17)
[2020-12-11] MEDS: MIDAZOLAM 100 MG in DEXTROSE 5% 80 ML IV PRN ×4 (00:18→23:50)
[2020-12-11 05:21] LABS: ABG Base Excess 1.6 MMOL/L (-2.5-2.5); ABG HCO3 28.9 MMOL/L (20-26); ABG Oxygen Saturation 90.9 % (95-100); ABG PCO2 60.8 MM HG (35-48); ABG PH 7.295 (7.35-7.45); ABG TCO2 30.8 MMOL/L (23-27)
[2020-12-11 05:34] LABS: Basophils % 0.1 % (0.0-0.8); Hematocrit 29.6 VOL% (42.0-52.0); Hemoglobin 8.7 GM/DL (14.0-18.0); Immature Granulocytes % 1.7 %; Immature Granulocytes Absolute 0.25 #; Lymphocytes # 0.5 10*3/uL (1.4-4.0); Lymphocytes % 3.7 % (21.2-54.2); Mean Corpuscular HGB Conc 29.4 GM/DL (32-36); Mean Corpuscular Volume 95.5 FL (87-102); Mean Platelet Volume 12.1 FL (9.6-12.0); Monocytes % 5.1 % (1.7-12.7); NRBC # 0.07 10*3/uL; Neutrophils % 89.4 % (38.7-73.9); Platelet Count 171 T/CUMM (130-400); Red Cell Distribution Width 14.2 % (9.3-17.3); White Blood Count 14.3 T/CUMM (4-12)
[2020-12-11 05:58] LABS: Band Neutrophils 1 % (0-10); Lymphocytes 6 % (20-55); Nucleated Red Blood Cells 1 (0-5); Platelet Estimate Normal; Segmented Neutrophils 91 % (50-85); Total Cells Counted 100
[2020-12-11 05:59] LABS: Calcium 9.1 MG/DL (8.5-10.1); Hypochromasia Slight; Osmolality,Calculated 325.4 MOS/KG (273-304)
[2020-12-11 06:05] LABS: Ferritin 775.1 ng/ml (26-388)
[2020-12-11] MEDS: INSULIN REGULAR 100 UNIT/ML SUBCUT SCH ×3 (06:11→17:41)
[2020-12-11] MEDS: hydrALAZINE 20 MG/1 ML VIAL IV PRN (06:11)
[2020-12-11] MEDS ORDERED: MORPHINE 2 MG/1 ML SYRINGE IV ONE (07:27)
[2020-12-11] MEDS ORDERED: METOPROLOL TARTRATE 5 MG/5 ML VIAL IV ONE (07:27)
[2020-12-11] MEDS: methylPREDNISolone SOD SUC 40 MG/1 ML VIAL IV SCH ×2 (08:23→21:12)
[2020-12-11] MEDS: CETIRIZINE 10 MG TABLET PO SCH (08:41)
[2020-12-11] MEDS: CHOLECALCIFEROL 1,000 UNIT TABLET PO SCH (08:41)
[2020-12-11] MEDS: ASCORBIC ACID 500 MG TABLET PO SCH ×2 (08:41→21:12)
[2020-12-11] MEDS: INSULIN GLARGINE 100 UNIT/ML SUBCUT SCH (08:41)
[2020-12-11] MEDS: NYSTATIN 500,000 UNIT/5 ML UDCUP SWISH/SWAL SCH ×4 (08:41→21:12)
[2020-12-11] MEDS: ZINC GLUCONATE 50 MG TABLET PO SCH (08:41)
[2020-12-11] MEDS: FAMOTIDINE 20 MG/2 ML VIAL IV SCH (08:42)
[2020-12-11] MEDS: fentaNYL INJ 1,250 MCG in SODIUM CHLORIDE 0.9% 225 ML IV PRN ×3 (09:21→22:17)
[2020-12-11] MEDS: HEPARIN DRIP 25,000 UNITS/500 ML PREMIX IV SCH (10:24)
[2020-12-12] MEDS: HEPARIN DRIP 25,000 UNITS/500 ML PREMIX IV SCH ×3 (00:55→17:51)
[2020-12-12] MEDS: INSULIN REGULAR 100 UNIT/ML SUBCUT SCH ×2 (01:07→06:28)
[2020-12-12] MEDS: fentaNYL INJ 1,250 MCG in SODIUM CHLORIDE 0.9% 225 ML IV PRN ×2 (04:20→10:00)
[2020-12-12 04:28] LABS: Calcium 8.2 MG/DL (8.5-10.1); Osmolality,Calculated 329.6 MOS/KG (273-304); Potassium 4.8 MMOL/L (3.5-5.1)
[2020-12-12 04:29] LABS: Eosinophils % 0.1 % (0.00-10.9); Hematocrit 23.5 VOL% (42.0-52.0); Immature Granulocytes % 0.7 %; Immature Granulocytes Absolute 0.07 #; Lymphocytes # 0.5 10*3/uL (1.4-4.0); Lymphocytes % 5.1 % (21.2-54.2); Mean Corpuscular HGB Conc 29.8 GM/DL (32-36); Mean Corpuscular Volume 94.8 FL (87-102); Mean Platelet Volume 12.1 FL (9.6-12.0); Monocytes % 5.6 % (1.7-12.7); NRBC # 0.05 10*3/uL; Neutrophils % 88.5 % (38.7-73.9); Platelet Count 145 T/CUMM (130-400); Red Blood Count 2.48 MC/CUMM (3.8-5.5); Red Cell Distribution Width 14.2 % (9.3-17.3)
[2020-12-12 04:31] LABS: White Blood Count 9.6 T/CUMM (4-12)
[2020-12-12 04:39] LABS: Ferritin 592.2 ng/ml (26-388)
[2020-12-12 04:40] LABS: Hypochromasia 1+; Microcytosis 1+; Platelet Estimate Adequate
[2020-12-12 05:14] LABS: ABG Base Excess 2.9 MMOL/L (-2.5-2.5); ABG HCO3 29.7 MMOL/L (20-26); ABG Oxygen Saturation 91.8 % (95-100); ABG PCO2 60.3 MM HG (35-48); ABG PO2 71.7 MM HG (80-95); ABG TCO2 31.5 MMOL/L (23-27)
[2020-12-12] MEDS: CETIRIZINE 10 MG TABLET PO SCH (09:32)
[2020-12-12] MEDS: CHOLECALCIFEROL 1,000 UNIT TABLET PO SCH (09:32)
[2020-12-12] MEDS: ASCORBIC ACID 500 MG TABLET PO SCH ×2 (09:33→21:27)
[2020-12-12] MEDS: NYSTATIN 500,000 UNIT/5 ML UDCUP SWISH/SWAL SCH ×4 (09:33→21:27)
[2020-12-12] MEDS: ZINC GLUCONATE 50 MG TABLET PO SCH (09:33)
[2020-12-12] MEDS: methylPREDNISolone SOD SUC 40 MG/1 ML VIAL IV SCH ×2 (09:34→21:27)
[2020-12-12] MEDS: FAMOTIDINE 20 MG/2 ML VIAL IV SCH (09:34)
[2020-12-12] MEDS: INSULIN GLARGINE 100 UNIT/ML SUBCUT SCH (09:35)
[2020-12-12] MEDS ORDERED: SODIUM CHLORIDE 0.9% 1,000 ML IV PRN (11:24)
[2020-12-12] MEDS ORDERED: fentaNYL INJ 2,500 MCG in SODIUM CHLORIDE 0.9% 75 ML IV PRN (12:38)
[2020-12-12] MEDS: INSULIN LISPRO 100 UNIT/ML SUBCUT SCH ×3 (13:06→21:26)
[2020-12-12] MEDS: MIDAZOLAM 100 MG in DEXTROSE 5% 80 ML IV PRN ×2 (14:30→22:51)
[2020-12-12] MEDS: fentaNYL INJ 2,500 MCG in SODIUM CHLORIDE 0.9% 75 ML IV PRN ×2 (15:48→21:45)
[2020-12-12 18:25] LABS: Hematocrit 24.1 VOL% (42.0-52.0); Hemoglobin 6.9 GM/DL (14.0-18.0)
[2020-12-12] MEDS ORDERED: FUROSEMIDE 40 MG/4 ML VIAL IV ONE (21:38)
[2020-12-13] MEDS: INSULIN LISPRO 100 UNIT/ML SUBCUT SCH ×6 (00:33→21:00)
[2020-12-13 01:47] LABS: Hematocrit 29.1 VOL% (42.0-52.0)
[2020-12-13 01:59] LABS: Hemoglobin 8.6 GM/DL (14.0-18.0)
[2020-12-13] MEDS: fentaNYL INJ 2,500 MCG in SODIUM CHLORIDE 0.9% 75 ML IV PRN ×4 (04:07→20:34)
[2020-12-13 04:53] LABS: ABG Base Excess 3.3 MMOL/L (-2.5-2.5); ABG Oxygen Saturation 91.9 % (95-100); ABG PCO2 66.2 MM HG (35-48); ABG PH 7.288 (7.35-7.45); ABG PO2 71.9 MM HG (80-95)
[2020-12-13 05:00] LABS: Basophils % 0.1 % (0.0-0.8); Hematocrit 28.5 VOL% (42.0-52.0); Hemoglobin 8.7 GM/DL (14.0-18.0); Immature Granulocytes % 1.4 %; Immature Granulocytes Absolute 0.15 #; Lymphocytes # 0.3 10*3/uL (1.4-4.0); Lymphocytes % 3.1 % (21.2-54.2); Mean Corpuscular HGB Conc 30.5 GM/DL (32-36); Mean Platelet Volume 12.5 FL (9.6-12.0); Monocytes % 3.2 % (1.7-12.7); NRBC # 0.05 10*3/uL; Neutrophils % 92.2 % (38.7-73.9); Platelet Count 157 T/CUMM (130-400); Red Cell Distribution Width 14.6 % (9.3-17.3); White Blood Count 10.5 T/CUMM (4-12)
[2020-12-13 05:14] LABS: Calcium 8.8 MG/DL (8.5-10.1); Osmolality,Calculated 321.7 MOS/KG (273-304); Potassium 5.1 MMOL/L (3.5-5.1)
[2020-12-13 05:25] LABS: Band Neutrophils 1 % (0-10); Hypochromasia 1+; Lymphocytes 4 % (20-55); Microcytosis 1+; Nucleated Red Blood Cells 1 (0-5); Platelet Estimate Adequate; Segmented Neutrophils 92 % (50-85); Total Cells Counted 100
[2020-12-13] MEDS: MIDAZOLAM 100 MG in DEXTROSE 5% 80 ML IV PRN ×3 (06:24→22:29)
[2020-12-13] MEDS: HEPARIN DRIP 25,000 UNITS/500 ML PREMIX IV SCH (08:33)
[2020-12-13] MEDS: FAMOTIDINE 20 MG/2 ML VIAL IV SCH (08:36)
[2020-12-13] MEDS: methylPREDNISolone SOD SUC 40 MG/1 ML VIAL IV SCH ×2 (08:38→21:00)
[2020-12-13] MEDS: INSULIN GLARGINE 100 UNIT/ML SUBCUT SCH (08:38)
[2020-12-13] MEDS: NYSTATIN 500,000 UNIT/5 ML UDCUP SWISH/SWAL SCH ×4 (08:38→21:00)
[2020-12-13] MEDS: ASCORBIC ACID 500 MG TABLET PO SCH ×2 (08:38→21:00)
[2020-12-13] MEDS: CHOLECALCIFEROL 1,000 UNIT TABLET PO SCH (08:38)
[2020-12-13] MEDS: CETIRIZINE 10 MG TABLET PO SCH (08:39)
[2020-12-13] MEDS: ZINC GLUCONATE 50 MG TABLET PO SCH (08:39)
[2020-12-13] MEDS: FUROSEMIDE 40 MG/4 ML VIAL IV SCH ×2 (10:03→21:00)
[2020-12-13 11:40] LABS: Hematocrit 28.3 VOL% (42.0-52.0); Hemoglobin 8.5 GM/DL (14.0-18.0)
[2020-12-13 15:25] LABS: ABG Base Excess 4.6 MMOL/L (-2.5-2.5); ABG HCO3 30.4 MMOL/L (20-26); ABG Oxygen Saturation 93.6 % (95-100); ABG PCO2 52.4 MM HG (35-48); ABG PH 7.382 (7.35-7.45); ABG PO2 72.8 MM HG (80-95); ABG TCO2 32.1 MMOL/L (23-27)
[2020-12-14] MEDS: INSULIN LISPRO 100 UNIT/ML SUBCUT SCH ×6 (00:03→20:34)
[2020-12-14] MEDS: HEPARIN DRIP 25,000 UNITS/500 ML PREMIX IV SCH ×2 (00:19→17:11)
[2020-12-14] MEDS: fentaNYL INJ 2,500 MCG in SODIUM CHLORIDE 0.9% 75 ML IV PRN ×2 (02:20→20:02)
[2020-12-14 03:55] LABS: ABG Base Excess 4.2 MMOL/L (-2.5-2.5); ABG HCO3 30.5 MMOL/L (20-26); ABG Oxygen Saturation 94.9 % (95-100); ABG PCO2 56.7 MM HG (35-48); ABG PH 7.349 (7.35-7.45); ABG PO2 84.1 MM HG (80-95); ABG TCO2 32.3 MMOL/L (23-27)
[2020-12-14 04:39] LABS: Basophils % 0.1 % (0.0-0.8); Hematocrit 28.4 VOL% (42.0-52.0); Hemoglobin 8.4 GM/DL (14.0-18.0); Immature Granulocytes % 1.8 %; Immature Granulocytes Absolute 0.23 #; Lymphocytes # 0.5 10*3/uL (1.4-4.0); Lymphocytes % 3.7 % (21.2-54.2); Mean Corpuscular HGB Conc 29.6 GM/DL (32-36); Mean Corpuscular Volume 94.4 FL (87-102); Mean Platelet Volume 12.4 FL (9.6-12.0); Monocytes % 4.8 % (1.7-12.7); NRBC # 0.04 10*3/uL; Neutrophils % 89.6 % (38.7-73.9); Platelet Count 178 T/CUMM (130-400); Red Blood Count 3.01 MC/CUMM (3.8-5.5); Red Cell Distribution Width 14.7 % (9.3-17.3); White Blood Count 12.7 T/CUMM (4-12)
[2020-12-14 05:01] LABS: Lymphocytes 4 % (20-55); Platelet Estimate Adequate; Segmented Neutrophils 95 % (50-85); Total Cells Counted 100
[2020-12-14 05:02] LABS: Calcium 8.6 MG/DL (8.5-10.1); Hypochromasia 1+; Microcytosis Slight; Osmolality,Calculated 321.1 MOS/KG (273-304); Potassium 4.9 MMOL/L (3.5-5.1)
[2020-12-14 05:30] LABS: Ferritin 533.3 ng/ml (26-388)
[2020-12-14] MEDS ORDERED: INSULIN GLARGINE 100 UNIT/ML SUBCUT SCH (09:00)
[2020-12-14] MEDS: CETIRIZINE 10 MG TABLET PO SCH (09:25)
[2020-12-14] MEDS: CHOLECALCIFEROL 1,000 UNIT TABLET PO SCH (09:25)
[2020-12-14] MEDS: ASCORBIC ACID 500 MG TABLET PO SCH ×2 (09:25→20:34)
[2020-12-14] MEDS: ZINC GLUCONATE 50 MG TABLET PO SCH (09:25)
[2020-12-14] MEDS: FAMOTIDINE 20 MG/2 ML VIAL IV SCH (09:26)
[2020-12-14] MEDS: methylPREDNISolone SOD SUC 40 MG/1 ML VIAL IV SCH ×2 (09:26→20:33)
[2020-12-14] MEDS: NYSTATIN 500,000 UNIT/5 ML UDCUP SWISH/SWAL SCH ×4 (09:27→20:34)
[2020-12-14] MEDS: INSULIN GLARGINE 100 UNIT/ML SUBCUT SCH (09:27)
[2020-12-14] MEDS: FUROSEMIDE 40 MG/4 ML VIAL IV SCH ×2 (09:28→20:34)
[2020-12-14 13:53] LABS: ABG Base Excess 5.8 MMOL/L (-2.5-2.5); ABG HCO3 33.4 MMOL/L (20-26); ABG Oxygen Saturation 86.4 % (95-100); ABG PCO2 65.8 MM HG (35-48); ABG PH 7.323 (7.35-7.45); ABG PO2 60.1 MM HG (80-95); ABG TCO2 35.4 MMOL/L (23-27)
[2020-12-14] MEDS: METOCLOPRAMIDE 10 MG/2 ML VIAL IV SCH ×2 (14:03→18:37)
[2020-12-14] MEDS ORDERED: ROCURONIUM 100 MG/10 ML VIAL IV ONE ×2 (14:30)
[2020-12-14] MEDS: MIDAZOLAM 100 MG in DEXTROSE 5% 80 ML IV PRN (15:53)
[2020-12-14 16:43] LABS: Hematocrit 30.3 VOL% (42.0-52.0); Hemoglobin 9.1 GM/DL (14.0-18.0)
[2020-12-14 21:32] LABS: ABG HCO3 29.6 MMOL/L (20-26); ABG Oxygen Saturation 84.1 % (95-100); ABG PCO2 53.6 MM HG (35-48); ABG PH 7.387 (7.35-7.45); ABG TCO2 29.4 MMOL/L (23-27)
[2020-12-15] MEDS: INSULIN LISPRO 100 UNIT/ML SUBCUT SCH ×6 (00:47→20:38)
[2020-12-15] MEDS: METOCLOPRAMIDE 10 MG/2 ML VIAL IV SCH ×4 (00:48→18:14)
[2020-12-15 04:39] LABS: Basophils % 0.1 % (0.0-0.8); Hematocrit 29.2 VOL% (42.0-52.0); Hemoglobin 8.9 GM/DL (14.0-18.0); Immature Granulocytes % 1.8 %; Immature Granulocytes Absolute 0.24 #; Lymphocytes # 0.5 10*3/uL (1.4-4.0); Lymphocytes % 3.4 % (21.2-54.2); Mean Corpuscular HGB Conc 30.5 GM/DL (32-36); Mean Platelet Volume 12.3 FL (9.6-12.0); Monocytes % 4.6 % (1.7-12.7); NRBC # 0.07 10*3/uL; Neutrophils % 90.1 % (38.7-73.9); Platelet Count 198 T/CUMM (130-400); Red Blood Count 3.14 MC/CUMM (3.8-5.5); Red Cell Distribution Width 14.8 % (9.3-17.3); White Blood Count 13.4 T/CUMM (4-12)
[2020-12-15 05:06] LABS: Albumin 2.2 G/DL (3.4-5.0); Bilirubin,Total 0.4 MG/DL (0.20-1.00); Calcium 8.8 MG/DL (8.5-10.1); Osmolality,Calculated 311.5 MOS/KG (273-304); Potassium 4.7 MMOL/L (3.5-5.1); Total Protein 6.2 G/DL (6.4-8.2)
[2020-12-15 05:37] LABS: ABG Base Excess 6.5 MMOL/L (-2.5-2.5); ABG HCO3 32.5 MMOL/L (20-26); ABG Oxygen Saturation 93.4 % (95-100); ABG PCO2 54.5 MM HG (35-48); ABG PH 7.393 (7.35-7.45); ABG PO2 72.2 MM HG (80-95); ABG TCO2 34.1 MMOL/L (23-27)
[2020-12-15] MEDS: fentaNYL INJ 2,500 MCG in SODIUM CHLORIDE 0.9% 75 ML IV PRN ×2 (05:45→16:00)
[2020-12-15 08:08] LABS: Lymphocytes 3 % (20-55); Nucleated Red Blood Cells 1 (0-5); Polychromasia Slight; Segmented Neutrophils 96 % (50-85); Total Cells Counted 100
[2020-12-15 08:09] LABS: Platelet Estimate Normal
[2020-12-15] MEDS: CETIRIZINE 10 MG TABLET PO SCH (08:26)
[2020-12-15] MEDS: FAMOTIDINE 20 MG/2 ML VIAL IV SCH (08:26)
[2020-12-15] MEDS: ASCORBIC ACID 500 MG TABLET PO SCH ×2 (08:26→20:38)
[2020-12-15] MEDS: INSULIN GLARGINE 100 UNIT/ML SUBCUT SCH (08:26)
[2020-12-15] MEDS: ZINC GLUCONATE 50 MG TABLET PO SCH (08:26)
[2020-12-15] MEDS: NYSTATIN 500,000 UNIT/5 ML UDCUP SWISH/SWAL SCH ×4 (08:26→20:39)
[2020-12-15] MEDS: FUROSEMIDE 40 MG/4 ML VIAL IV SCH ×2 (08:26→20:37)
[2020-12-15] MEDS: methylPREDNISolone SOD SUC 40 MG/1 ML VIAL IV SCH ×2 (08:26→20:37)
[2020-12-15] MEDS: CHOLECALCIFEROL 1,000 UNIT TABLET PO SCH (08:26)
[2020-12-15 11:06] LABS: Hemoglobin 8.7 GM/DL (14.0-18.0)
[2020-12-15] MEDS: MIDAZOLAM 100 MG in DEXTROSE 5% 80 ML IV PRN ×2 (11:45→23:01)
[2020-12-15] MEDS: HEPARIN DRIP 25,000 UNITS/500 ML PREMIX IV SCH (11:45)
[2020-12-15 18:44] LABS: Hematocrit 28.6 VOL% (42.0-52.0); Hemoglobin 8.6 GM/DL (14.0-18.0)
[2020-12-16] MEDS: INSULIN LISPRO 100 UNIT/ML SUBCUT SCH ×6 (00:10→20:39)
[2020-12-16] MEDS: METOCLOPRAMIDE 10 MG/2 ML VIAL IV SCH ×4 (00:11→18:00)
[2020-12-16 02:14] LABS: Hematocrit 30.2 VOL% (42.0-52.0); Hemoglobin 9.1 GM/DL (14.0-18.0)
[2020-12-16] MEDS: fentaNYL INJ 2,500 MCG in SODIUM CHLORIDE 0.9% 75 ML IV PRN ×3 (02:23→20:56)
[2020-12-16] MEDS: HEPARIN DRIP 25,000 UNITS/500 ML PREMIX IV SCH ×3 (03:22→20:39)
[2020-12-16 04:36] LABS: Basophils % 0.1 % (0.0-0.8); Hematocrit 28.8 VOL% (42.0-52.0); Hemoglobin 8.7 GM/DL (14.0-18.0); Immature Granulocytes Absolute 0.32 #; Lymphocytes # 0.4 10*3/uL (1.4-4.0); Lymphocytes % 2.7 % (21.2-54.2); Mean Corpuscular HGB Conc 30.2 GM/DL (32-36); Mean Corpuscular Volume 92.9 FL (87-102); Mean Platelet Volume 12.1 FL (9.6-12.0); Monocytes % 3.6 % (1.7-12.7); NRBC # 0.18 10*3/uL; Neutrophils % 91.6 % (38.7-73.9); Platelet Count 195 T/CUMM (130-400); Red Cell Distribution Width 15.5 % (9.3-17.3); White Blood Count 15.9 T/CUMM (4-12)
[2020-12-16 05:02] LABS: Ferritin 484.7 ng/ml (26-388); Osmolality,Calculated 307.7 MOS/KG (273-304)
[2020-12-16 05:02] LABS: ABG Base Excess 4.8 MMOL/L (-2.5-2.5); ABG HCO3 31.6 MMOL/L (20-26); ABG Oxygen Saturation 93.1 % (95-100); ABG PCO2 59.3 MM HG (35-48); ABG PH 7.344 (7.35-7.45); ABG PO2 75.5 MM HG (80-95); ABG TCO2 33.4 MMOL/L (23-27)
[2020-12-16] MEDS: methylPREDNISolone SOD SUC 40 MG/1 ML VIAL IV SCH ×2 (08:00→20:38)
[2020-12-16] MEDS: FUROSEMIDE 40 MG/4 ML VIAL IV SCH ×3 (08:00→23:52)
[2020-12-16] MEDS: ZINC GLUCONATE 50 MG TABLET PO SCH (08:02)
[2020-12-16] MEDS: NYSTATIN 500,000 UNIT/5 ML UDCUP SWISH/SWAL SCH ×4 (08:02→20:40)
[2020-12-16] MEDS: CHOLECALCIFEROL 1,000 UNIT TABLET PO SCH (08:02)
[2020-12-16] MEDS: CETIRIZINE 10 MG TABLET PO SCH (08:02)
[2020-12-16] MEDS: ASCORBIC ACID 500 MG TABLET PO SCH ×2 (08:02→20:38)
[2020-12-16] MEDS: INSULIN GLARGINE 100 UNIT/ML SUBCUT SCH (08:03)
[2020-12-16] MEDS: FAMOTIDINE 20 MG/2 ML VIAL IV SCH (08:04)
[2020-12-16] MEDS ORDERED: ALBUMIN 25% 25 GM/100 ML VIAL IV SCH (09:30)
[2020-12-16 10:29] LABS: Hypochromasia 1+; Lymphocytes 4 % (20-55); Nucleated Red Blood Cells 3 (0-5); Platelet Estimate Normal; Segmented Neutrophils 91 % (50-85); Total Cells Counted 100
[2020-12-16 10:40] LABS: Hematocrit 28.4 VOL% (42.0-52.0); Hemoglobin 8.4 GM/DL (14.0-18.0)
[2020-12-16] MEDS ORDERED: INSULIN GLARGINE 100 UNIT/ML SUBCUT ONE (11:00)
[2020-12-16] MEDS: MIDAZOLAM 100 MG in DEXTROSE 5% 80 ML IV PRN (12:52)
[2020-12-16] MEDS: ALBUMIN 25% 25 GM/100 ML VIAL IV SCH ×2 (16:05→22:16)
[2020-12-16 16:18] LABS: Hematocrit 26.1 VOL% (42.0-52.0); Hemoglobin 7.9 GM/DL (14.0-18.0)
[2020-12-17] MEDS: INSULIN LISPRO 100 UNIT/ML SUBCUT SCH ×6 (00:27→22:02)
[2020-12-17] MEDS: METOCLOPRAMIDE 10 MG/2 ML VIAL IV SCH ×4 (00:44→18:43)
[2020-12-17 01:56] LABS: Hematocrit 25.8 VOL% (42.0-52.0); Hemoglobin 7.8 GM/DL (14.0-18.0)
[2020-12-17] MEDS: MIDAZOLAM 100 MG in DEXTROSE 5% 80 ML IV PRN ×2 (03:47→16:56)
[2020-12-17] MEDS: ALBUMIN 25% 25 GM/100 ML VIAL IV SCH ×2 (04:30→10:40)
[2020-12-17 04:47] LABS: Basophils % 0.1 % (0.0-0.8); Hematocrit 25.8 VOL% (42.0-52.0); Hemoglobin 7.8 GM/DL (14.0-18.0); Immature Granulocytes % 2.7 %; Immature Granulocytes Absolute 0.39 #; Lymphocytes # 0.6 10*3/uL (1.4-4.0); Lymphocytes % 3.9 % (21.2-54.2); Mean Corpuscular HGB Conc 30.2 GM/DL (32-36); Mean Corpuscular Volume 94.5 FL (87-102); Mean Platelet Volume 11.7 FL (9.6-12.0); Monocytes % 4.1 % (1.7-12.7); NRBC # 0.31 10*3/uL; Neutrophils % 89.2 % (38.7-73.9); Platelet Count 181 T/CUMM (130-400); Red Blood Count 2.73 MC/CUMM (3.8-5.5); Red Cell Distribution Width 15.6 % (9.3-17.3); White Blood Count 14.6 T/CUMM (4-12)
[2020-12-17 05:00] LABS: ABG Base Excess 8.6 MMOL/L (-2.5-2.5); ABG HCO3 36.1 MMOL/L (20-26); ABG Oxygen Saturation 91.4 % (95-100); ABG PH 7.325 (7.35-7.45); ABG PO2 69.1 MM HG (80-95); ABG TCO2 38.2 MMOL/L (23-27)
[2020-12-17 05:05] LABS: Band Neutrophils 2 % (0-10); Hypochromasia 1+; Lymphocytes 2 % (20-55); Microcytosis 1+; Nucleated Red Blood Cells 3 (0-5); Platelet Estimate Adequate; Segmented Neutrophils 91 % (50-85); Total Cells Counted 100
[2020-12-17 05:18] LABS: ABG PCO2 70.8 MM HG (35-48)
[2020-12-17] MEDS: fentaNYL INJ 2,500 MCG in SODIUM CHLORIDE 0.9% 75 ML IV PRN ×3 (05:18→20:31)
[2020-12-17 05:24] LABS: Calcium 9.2 MG/DL (8.5-10.1); Osmolality,Calculated 310.4 MOS/KG (273-304); Potassium 5.2 MMOL/L (3.5-5.1)
[2020-12-17] MEDS: FUROSEMIDE 40 MG/4 ML VIAL IV SCH ×2 (05:55→10:36)
[2020-12-17 07:48] LABS: Hematocrit 24.9 VOL% (42.0-52.0); Hemoglobin 7.4 GM/DL (14.0-18.0)
[2020-12-17] MEDS: INSULIN GLARGINE 100 UNIT/ML SUBCUT SCH (09:08)
[2020-12-17] MEDS: CHOLECALCIFEROL 1,000 UNIT TABLET PO SCH (09:09)
[2020-12-17] MEDS: ZINC GLUCONATE 50 MG TABLET PO SCH (09:09)
[2020-12-17] MEDS: NYSTATIN 500,000 UNIT/5 ML UDCUP SWISH/SWAL SCH ×3 (09:09→17:22)
[2020-12-17] MEDS: CETIRIZINE 10 MG TABLET PO SCH (09:09)
[2020-12-17] MEDS: FAMOTIDINE 20 MG/2 ML VIAL IV SCH (09:09)
[2020-12-17] MEDS: methylPREDNISolone SOD SUC 40 MG/1 ML VIAL IV SCH ×2 (09:09→20:05)
[2020-12-17] MEDS: ASCORBIC ACID 500 MG TABLET PO SCH ×2 (09:09→20:31)
[2020-12-17] MEDS ORDERED: ALBUTEROL INHALER 18 GM INH PRN (09:58)
[2020-12-17] MEDS: HEPARIN DRIP 25,000 UNITS/500 ML PREMIX IV SCH (13:38)
[2020-12-17] MEDS: cefTRIAXone 1,000 MG in SODIUM CHLORIDE 0.9% 100 ML IV SCH (14:17)
[2020-12-17 16:51] LABS: Hematocrit 23.8 VOL% (42.0-52.0); Hemoglobin 7.1 GM/DL (14.0-18.0)
[2020-12-17] MEDS ORDERED: SODIUM CHLORIDE 0.9% 1,000 ML IV PRN (17:57)
[2020-12-17] MEDS ORDERED: ROCURONIUM 100 MG/10 ML VIAL IV ONE ×2 (18:30)
[2020-12-17] MEDS: ROCURONIUM 500 MG in SODIUM CHLORIDE 0.9% 500 ML IV PRN (19:12)
[2020-12-18] MEDS: INSULIN LISPRO 100 UNIT/ML SUBCUT SCH ×6 (00:55→20:12)
[2020-12-18] MEDS: METOCLOPRAMIDE 10 MG/2 ML VIAL IV SCH ×4 (00:56→18:11)
[2020-12-18] MEDS: fentaNYL INJ 2,500 MCG in SODIUM CHLORIDE 0.9% 75 ML IV PRN ×4 (00:57→17:16)
[2020-12-18] MEDS: MIDAZOLAM 100 MG in DEXTROSE 5% 80 ML IV PRN ×4 (00:57→22:16)
[2020-12-18 03:09] LABS: ABG Base Excess 6.9 MMOL/L (-2.5-2.5); ABG Oxygen Saturation 94.8 % (95-100); ABG PH 7.213 (7.35-7.45); ABG PO2 87.1 MM HG (80-95); ABG TCO2 39.9 MMOL/L (23-27); Allen Test Positive; Pt O2 Delivery Device Ventilator
[2020-12-18 05:01] LABS: Basophils % 0.1 % (0.0-0.8); Hematocrit 26.8 VOL% (42.0-52.0); Hemoglobin 8.1 GM/DL (14.0-18.0); Immature Granulocytes % 2.4 %; Immature Granulocytes Absolute 0.31 #; Lymphocytes # 0.3 10*3/uL (1.4-4.0); Lymphocytes % 2.4 % (21.2-54.2); Mean Corpuscular HGB Conc 30.2 GM/DL (32-36); Mean Corpuscular Volume 97.1 FL (87-102); Mean Platelet Volume 12.5 FL (9.6-12.0); Monocytes % 3.8 % (1.7-12.7); NRBC # 0.27 10*3/uL; Neutrophils % 91.3 % (38.7-73.9); Platelet Count 161 T/CUMM (130-400); Red Blood Count 2.76 MC/CUMM (3.8-5.5); Red Cell Distribution Width 15.3 % (9.3-17.3)
[2020-12-18 05:26] LABS: Albumin 2.9 G/DL (3.4-5.0); Bilirubin,Total 0.4 MG/DL (0.20-1.00); Osmolality,Calculated 303.5 MOS/KG (273-304); Potassium 5.2 MMOL/L (3.5-5.1); Total Protein 6.6 G/DL (6.4-8.2)
[2020-12-18 05:29] LABS: Lymphocytes 3 % (20-55); Segmented Neutrophils 95 % (50-85); Total Cells Counted 100
[2020-12-18 05:30] LABS: Hypochromasia 1+; Microcytosis 1+; Platelet Estimate Adequate
[2020-12-18 05:34] LABS: ABG Base Excess 8.8 MMOL/L (-2.5-2.5); ABG HCO3 32.5 MMOL/L (20-26); ABG Oxygen Saturation 97.9 % (95-100); ABG PH 7.316 (7.35-7.45); ABG TCO2 34.7 MMOL/L (23-27)
[2020-12-18 05:37] LABS: ABG PCO2 72.4 MM HG (35-48)
[2020-12-18] MEDS: ROCURONIUM 500 MG in SODIUM CHLORIDE 0.9% 500 ML IV PRN ×2 (05:56→16:47)
[2020-12-18] MEDS: HEPARIN DRIP 25,000 UNITS/500 ML PREMIX IV SCH ×3 (06:52→22:00)
[2020-12-18] MEDS: INSULIN GLARGINE 100 UNIT/ML SUBCUT SCH ×2 (08:17→09:18)
[2020-12-18] MEDS: FAMOTIDINE 20 MG/2 ML VIAL IV SCH (08:17)
[2020-12-18] MEDS: CHOLECALCIFEROL 1,000 UNIT TABLET PO SCH (08:18)
[2020-12-18] MEDS: methylPREDNISolone SOD SUC 40 MG/1 ML VIAL IV SCH ×2 (08:18→20:12)
[2020-12-18] MEDS: ZINC GLUCONATE 50 MG TABLET PO SCH (08:18)
[2020-12-18] MEDS: CETIRIZINE 10 MG TABLET PO SCH (08:18)
[2020-12-18] MEDS: ASCORBIC ACID 500 MG TABLET PO SCH ×2 (08:18→20:12)
[2020-12-18] MEDS ORDERED: ROCURONIUM 1,000 MG in SODIUM CHLORIDE 0.9% 175 ML IV PRN (09:42)
[2020-12-18 10:41] LABS: ABG Base Excess 9.5 MMOL/L (-2.5-2.5); ABG HCO3 33.2 MMOL/L (20-26); ABG Oxygen Saturation 92.7 % (95-100); ABG PCO2 66.2 MM HG (35-48); ABG PH 7.354 (7.35-7.45); ABG PO2 67.5 MM HG (80-95); ABG TCO2 34.5 MMOL/L (23-27)
[2020-12-18] MEDS: cefTRIAXone 1,000 MG in SODIUM CHLORIDE 0.9% 100 ML IV SCH (12:36)
[2020-12-18] MEDS ORDERED: RIFAMPIN INJ 600 MG in SODIUM CHLORIDE 0.9% 100 ML IV SCH (13:30)
[2020-12-18] MEDS: LINEZOLID INJ 600 MG/300 ML PREMIX IV SCH (13:48)
[2020-12-18 17:13] LABS: Hematocrit 25.9 VOL% (42.0-52.0); Hemoglobin 7.9 GM/DL (14.0-18.0)
[2020-12-19 00:13] LABS: Hematocrit 26.6 VOL% (42.0-52.0)
[2020-12-19] MEDS: INSULIN LISPRO 100 UNIT/ML SUBCUT SCH ×6 (00:21→20:16)
[2020-12-19] MEDS: METOCLOPRAMIDE 10 MG/2 ML VIAL IV SCH ×4 (00:22→18:04)
[2020-12-19] MEDS: fentaNYL INJ 2,500 MCG in SODIUM CHLORIDE 0.9% 75 ML IV PRN (00:29)
[2020-12-19] MEDS: fentaNYL INJ 5,000 MCG in SODIUM CHLORIDE 0.9% 150 ML IV PRN ×2 (00:29→07:21)
[2020-12-19] MEDS: LINEZOLID INJ 600 MG/300 ML PREMIX IV SCH ×2 (01:20→13:13)
[2020-12-19] MEDS: ROCURONIUM 500 MG in SODIUM CHLORIDE 0.9% 500 ML IV PRN (03:30)
[2020-12-19 04:01] LABS: ABG Base Excess 7.6 MMOL/L (-2.5-2.5); ABG Oxygen Saturation 94.8 % (95-100); ABG PCO2 68.8 MM HG (35-48); ABG PH 7.324 (7.35-7.45); ABG PO2 79.3 MM HG (80-95); ABG TCO2 37.1 MMOL/L (23-27)
[2020-12-19 04:55] LABS: Basophils % 0.1 % (0.0-0.8); Hematocrit 26.8 VOL% (42.0-52.0); Immature Granulocytes % 1.5 %; Immature Granulocytes Absolute 0.21 #; Lymphocytes # 0.3 10*3/uL (1.4-4.0); Lymphocytes % 2.3 % (21.2-54.2); Mean Corpuscular HGB Conc 29.9 GM/DL (32-36); Mean Corpuscular Volume 94.4 FL (87-102); Mean Platelet Volume 12.5 FL (9.6-12.0); Monocytes % 3.6 % (1.7-12.7); NRBC # 0.17 10*3/uL; Neutrophils % 92.5 % (38.7-73.9); Platelet Count 139 T/CUMM (130-400); Red Blood Count 2.84 MC/CUMM (3.8-5.5); Red Cell Distribution Width 15.5 % (9.3-17.3); White Blood Count 14.3 T/CUMM (4-12)
[2020-12-19] MEDS: MIDAZOLAM 100 MG in DEXTROSE 5% 80 ML IV PRN ×2 (05:02→11:48)
[2020-12-19 05:15] LABS: Band Neutrophils 3 % (0-10); Lymphocytes 6 % (20-55); Segmented Neutrophils 90 % (50-85); Total Cells Counted 100
[2020-12-19 05:16] LABS: Hypochromasia 1+; Microcytosis 1+
[2020-12-19 05:23] LABS: Albumin 2.7 G/DL (3.4-5.0); Bilirubin,Total 0.6 MG/DL (0.20-1.00); Calcium 8.9 MG/DL (8.5-10.1); Osmolality,Calculated 298.8 MOS/KG (273-304); Total Protein 6.4 G/DL (6.4-8.2)
[2020-12-19] MEDS: ASCORBIC ACID 500 MG TABLET PO SCH ×2 (08:00→20:17)
[2020-12-19] MEDS: ZINC GLUCONATE 50 MG TABLET PO SCH (08:00)
[2020-12-19] MEDS: methylPREDNISolone SOD SUC 40 MG/1 ML VIAL IV SCH ×2 (08:01→20:16)
[2020-12-19] MEDS: FAMOTIDINE 20 MG/2 ML VIAL IV SCH (08:02)
[2020-12-19] MEDS: INSULIN GLARGINE 100 UNIT/ML SUBCUT SCH (08:04)
[2020-12-19] MEDS: CHOLECALCIFEROL 1,000 UNIT TABLET PO SCH (08:05)
[2020-12-19] MEDS: CETIRIZINE 10 MG TABLET PO SCH (08:05)
[2020-12-19] MEDS: HEPARIN DRIP 25,000 UNITS/500 ML PREMIX IV SCH (14:13)
[2020-12-19 14:17] LABS: Hematocrit 26.6 VOL% (42.0-52.0); Hemoglobin 7.9 GM/DL (14.0-18.0)
[2020-12-19 18:32] LABS: Hematocrit 28.5 VOL% (42.0-52.0); Hemoglobin 8.5 GM/DL (14.0-18.0)
[2020-12-20] MEDS: INSULIN LISPRO 100 UNIT/ML SUBCUT SCH ×6 (00:11→20:22)
[2020-12-20] MEDS: METOCLOPRAMIDE 10 MG/2 ML VIAL IV SCH ×4 (00:11→18:03)
[2020-12-20 00:37] LABS: Hematocrit 27.4 VOL% (42.0-52.0); Hemoglobin 8.2 GM/DL (14.0-18.0)
[2020-12-20] MEDS: fentaNYL INJ 5,000 MCG in SODIUM CHLORIDE 0.9% 150 ML IV PRN ×2 (01:05→20:36)
[2020-12-20] MEDS: LINEZOLID INJ 600 MG/300 ML PREMIX IV SCH ×2 (02:02→13:50)
[2020-12-20] MEDS: MIDAZOLAM 100 MG in DEXTROSE 5% 80 ML IV PRN ×2 (02:30→16:05)
[2020-12-20 04:06] LABS: Basophils % 0.1 % (0.0-0.8); Hematocrit 27.1 VOL% (42.0-52.0); Immature Granulocytes % 1.6 %; Immature Granulocytes Absolute 0.24 #; Lymphocytes # 0.2 10*3/uL (1.4-4.0); Lymphocytes % 1.5 % (21.2-54.2); Mean Corpuscular HGB Conc 29.5 GM/DL (32-36); Mean Corpuscular Volume 95.4 FL (87-102); Mean Platelet Volume 11.9 FL (9.6-12.0); Monocytes % 4.2 % (1.7-12.7); NRBC # 0.12 10*3/uL; Neutrophils % 92.6 % (38.7-73.9); Platelet Count 165 T/CUMM (130-400); Red Blood Count 2.84 MC/CUMM (3.8-5.5); Red Cell Distribution Width 15.4 % (9.3-17.3); White Blood Count 15.1 T/CUMM (4-12)
[2020-12-20 04:22] LABS: Calcium 8.7 MG/DL (8.5-10.1); Potassium 5.1 MMOL/L (3.5-5.1)
[2020-12-20 04:26] LABS: Albumin 2.5 G/DL (3.4-5.0); Bilirubin,Total 0.7 MG/DL (0.20-1.00); Calcium 8.9 MG/DL (8.5-10.1); Osmolality,Calculated 294.1 MOS/KG (273-304); Potassium 4.9 MMOL/L (3.5-5.1); Total Protein 6.2 G/DL (6.4-8.2)
[2020-12-20 04:32] LABS: Band Neutrophils 8 % (0-10); Hypochromasia 1+; Lymphocytes 3 % (20-55); Segmented Neutrophils 88 % (50-85); Total Cells Counted 100
[2020-12-20 04:33] LABS: Microcytosis 1+; Platelet Estimate Adequate; Polychromasia Slight
[2020-12-20 05:22] LABS: ABG Base Excess 7.4 MMOL/L (-2.5-2.5); ABG HCO3 31.2 MMOL/L (20-26); ABG PCO2 64.6 MM HG (35-48); ABG TCO2 32.5 MMOL/L (23-27)
[2020-12-20] MEDS: HEPARIN DRIP 25,000 UNITS/500 ML PREMIX IV SCH ×2 (06:36→08:28)
[2020-12-20] MEDS: FAMOTIDINE 20 MG/2 ML VIAL IV SCH (08:03)
[2020-12-20] MEDS: methylPREDNISolone SOD SUC 40 MG/1 ML VIAL IV SCH ×2 (08:03→20:22)
[2020-12-20] MEDS: ASCORBIC ACID 500 MG TABLET PO SCH ×2 (08:07→20:22)
[2020-12-20] MEDS: INSULIN GLARGINE 100 UNIT/ML SUBCUT SCH (08:07)
[2020-12-20] MEDS: ZINC GLUCONATE 50 MG TABLET PO SCH (08:07)
[2020-12-20] MEDS: CHOLECALCIFEROL 1,000 UNIT TABLET PO SCH (08:07)
[2020-12-20] MEDS: CETIRIZINE 10 MG TABLET PO SCH (08:07)
[2020-12-20] MEDS ORDERED: INSULIN GLARGINE 100 UNIT/ML SUBCUT ONE (12:00)
[2020-12-20 15:10] LABS: Hematocrit 30.1 VOL% (42.0-52.0)
[2020-12-21] MEDS: METOCLOPRAMIDE 10 MG/2 ML VIAL IV SCH ×4 (00:07→18:30)
[2020-12-21] MEDS: INSULIN LISPRO 100 UNIT/ML SUBCUT SCH ×7 (00:07→23:38)
[2020-12-21] MEDS: HEPARIN DRIP 25,000 UNITS/500 ML PREMIX IV SCH ×3 (01:03→17:16)
[2020-12-21] MEDS: LINEZOLID INJ 600 MG/300 ML PREMIX IV SCH ×2 (02:33→13:13)
[2020-12-21] MEDS: MIDAZOLAM 100 MG in DEXTROSE 5% 80 ML IV PRN ×2 (04:08→15:30)
[2020-12-21 04:17] LABS: ABG HCO3 33.5 MMOL/L (20-26); ABG Oxygen Saturation 91.6 % (95-100); ABG PCO2 58.7 MM HG (35-48); ABG PH 7.374 (7.35-7.45); ABG PO2 68.4 MM HG (80-95); ABG TCO2 35.3 MMOL/L (23-27); Allen Test Positive; Pt O2 Delivery Device Ventilator
[2020-12-21 04:34] LABS: Basophils % 0.1 % (0.0-0.8); Hematocrit 28.7 VOL% (42.0-52.0); Hemoglobin 8.8 GM/DL (14.0-18.0); Immature Granulocytes % 2.7 %; Immature Granulocytes Absolute 0.44 #; Lymphocytes # 0.3 10*3/uL (1.4-4.0); Lymphocytes % 1.7 % (21.2-54.2); Mean Corpuscular HGB Conc 30.7 GM/DL (32-36); Mean Corpuscular Volume 92.6 FL (87-102); Mean Platelet Volume 12.7 FL (9.6-12.0); Monocytes % 4.8 % (1.7-12.7); NRBC # 0.09 10*3/uL; Neutrophils % 90.7 % (38.7-73.9); Platelet Count 172 T/CUMM (130-400); Red Cell Distribution Width 15.7 % (9.3-17.3); White Blood Count 16.4 T/CUMM (4-12)
[2020-12-21 05:08] LABS: Albumin 2.4 G/DL (3.4-5.0); Bilirubin,Total 0.6 MG/DL (0.20-1.00); Calcium 8.9 MG/DL (8.5-10.1); Ferritin 485.7 ng/ml (26-388); Total Protein 6.3 G/DL (6.4-8.2)
[2020-12-21 05:15] LABS: Band Neutrophils 6 % (0-10); Lymphocytes 3 % (20-55); Segmented Neutrophils 85 % (50-85); Total Cells Counted 100
[2020-12-21 05:16] LABS: Anisocytosis 1+; Hypochromasia 1+; Microcytosis 1+
[2020-12-21 05:17] LABS: Platelet Estimate Adequate
[2020-12-21] MEDS: CHOLECALCIFEROL 1,000 UNIT TABLET PO SCH (08:49)
[2020-12-21] MEDS: CETIRIZINE 10 MG TABLET PO SCH (08:50)
[2020-12-21] MEDS: ZINC GLUCONATE 50 MG TABLET PO SCH (08:50)
[2020-12-21] MEDS: ASCORBIC ACID 500 MG TABLET PO SCH ×2 (08:50→20:53)
[2020-12-21] MEDS: INSULIN GLARGINE 100 UNIT/ML SUBCUT SCH (08:51)
[2020-12-21] MEDS: methylPREDNISolone SOD SUC 40 MG/1 ML VIAL IV SCH ×2 (08:52→20:53)
[2020-12-21] MEDS: FAMOTIDINE 20 MG/2 ML VIAL IV SCH (08:52)
[2020-12-21] MEDS ORDERED: FUROSEMIDE 40 MG/4 ML VIAL IV ONE (13:37)
[2020-12-21] MEDS: fentaNYL INJ 5,000 MCG in SODIUM CHLORIDE 0.9% 150 ML IV PRN (15:30)
[2020-12-22] MEDS: METOCLOPRAMIDE 10 MG/2 ML VIAL IV SCH ×4 (00:22→20:57)
[2020-12-22] MEDS: LINEZOLID INJ 600 MG/300 ML PREMIX IV SCH ×2 (02:22→15:29)
[2020-12-22] MEDS: MIDAZOLAM 100 MG in DEXTROSE 5% 80 ML IV PRN ×2 (02:24→20:10)
[2020-12-22 04:01] LABS: ABG Base Excess 20.8 MMOL/L (-2.5-2.5); ABG HCO3 46.6 MMOL/L (20-26); ABG Oxygen Saturation 96.1 % (95-100); ABG PCO2 60.1 MM HG (35-48); ABG PH 7.507 (7.35-7.45); ABG PO2 88.1 MM HG (80-95); ABG TCO2 48.4 MMOL/L (23-27)
[2020-12-22 04:29] LABS: Basophils % 0.1 % (0.0-0.8); Hematocrit 28.7 VOL% (42.0-52.0); Hemoglobin 8.8 GM/DL (14.0-18.0); Immature Granulocytes Absolute 0.32 #; Lymphocytes # 0.3 10*3/uL (1.4-4.0); Lymphocytes % 1.9 % (21.2-54.2); Mean Corpuscular HGB Conc 30.7 GM/DL (32-36); Mean Corpuscular Volume 93.5 FL (87-102); Mean Platelet Volume 12.3 FL (9.6-12.0); Monocytes % 3.8 % (1.7-12.7); NRBC # 0.04 10*3/uL; Neutrophils % 92.2 % (38.7-73.9); Platelet Count 186 T/CUMM (130-400); Red Blood Count 3.07 MC/CUMM (3.8-5.5); Red Cell Distribution Width 15.9 % (9.3-17.3); White Blood Count 16.2 T/CUMM (4-12)
[2020-12-22 04:51] LABS: Calcium 9.1 MG/DL (8.5-10.1); Osmolality,Calculated 285.1 MOS/KG (273-304); Potassium 4.9 MMOL/L (3.5-5.1)
[2020-12-22 04:58] LABS: Ferritin 555.7 ng/ml (26-388)
[2020-12-22 05:00] LABS: Band Neutrophils 1 % (0-10); Hypochromasia 1+; Lymphocytes 3 % (20-55); Platelet Estimate Adequate; Segmented Neutrophils 93 % (50-85); Total Cells Counted 100
[2020-12-22 05:01] LABS: Microcytosis 1+
[2020-12-22] MEDS: INSULIN LISPRO 100 UNIT/ML SUBCUT SCH ×5 (06:21→20:58)
[2020-12-22] MEDS: INSULIN GLARGINE 100 UNIT/ML SUBCUT SCH (08:20)
[2020-12-22] MEDS: FAMOTIDINE 20 MG/2 ML VIAL IV SCH (08:21)
[2020-12-22] MEDS: methylPREDNISolone SOD SUC 40 MG/1 ML VIAL IV SCH ×2 (08:21→20:58)
[2020-12-22] MEDS: ZINC GLUCONATE 50 MG TABLET PO SCH (08:22)
[2020-12-22] MEDS: ASCORBIC ACID 500 MG TABLET PO SCH ×2 (08:22→20:58)
[2020-12-22] MEDS: CHOLECALCIFEROL 1,000 UNIT TABLET PO SCH (08:22)
[2020-12-22] MEDS: CETIRIZINE 10 MG TABLET PO SCH (08:22)
[2020-12-22] MEDS: HEPARIN DRIP 25,000 UNITS/500 ML PREMIX IV SCH (10:28)
[2020-12-22] MEDS: fentaNYL INJ 5,000 MCG in SODIUM CHLORIDE 0.9% 150 ML IV PRN ×2 (10:32→20:07)
[2020-12-23] MEDS: INSULIN LISPRO 100 UNIT/ML SUBCUT SCH ×7 (00:10→23:54)
[2020-12-23] MEDS: METOCLOPRAMIDE 10 MG/2 ML VIAL IV SCH ×4 (00:10→20:17)
[2020-12-23] MEDS: LINEZOLID INJ 600 MG/300 ML PREMIX IV SCH ×2 (02:18→14:37)
[2020-12-23] MEDS: HEPARIN DRIP 25,000 UNITS/500 ML PREMIX IV SCH ×3 (03:00→20:00)
[2020-12-23] MEDS: fentaNYL INJ 5,000 MCG in SODIUM CHLORIDE 0.9% 150 ML IV PRN ×2 (04:30→15:04)
[2020-12-23 04:40] LABS: ABG Base Excess 8.6 MMOL/L (-2.5-2.5); ABG Oxygen Saturation 77.3 % (95-100); ABG PH 7.273 (7.35-7.45); ABG PO2 48.3 MM HG (80-95); ABG TCO2 35.8 MMOL/L (23-27); Allen Test Positive; Pt O2 Delivery Device Ventilator
[2020-12-23 04:47] LABS: Basophils % 0.1 % (0.0-0.8); Hematocrit 27.3 VOL% (42.0-52.0); Immature Granulocytes % 2.6 %; Lymphocytes # 0.5 10*3/uL (1.4-4.0); Lymphocytes % 3.1 % (21.2-54.2); Mean Corpuscular HGB Conc 29.3 GM/DL (32-36); Mean Corpuscular Volume 95.5 FL (87-102); Mean Platelet Volume 11.8 FL (9.6-12.0); NRBC # 0.05 10*3/uL; Neutrophils % 90.2 % (38.7-73.9); Platelet Count 189 T/CUMM (130-400); Red Blood Count 2.86 MC/CUMM (3.8-5.5); White Blood Count 15.1 T/CUMM (4-12)
[2020-12-23 04:48] LABS: ABG PCO2 82.4 MM HG (35-48)
[2020-12-23 05:12] LABS: Calcium 8.7 MG/DL (8.5-10.1); Osmolality,Calculated 288.1 MOS/KG (273-304); Potassium 5.1 MMOL/L (3.5-5.1)
[2020-12-23 05:19] LABS: Hypochromasia 1+; Lymphocytes 2 % (20-55); Microcytosis 1+; Platelet Estimate Adequate; Segmented Neutrophils 97 % (50-85); Total Cells Counted 100
[2020-12-23 05:20] LABS: ABG Base Excess 8.3 MMOL/L (-2.5-2.5); ABG PH 7.287 (7.35-7.45); ABG PO2 73.3 MM HG (80-95); ABG TCO2 34.8 MMOL/L (23-27)
[2020-12-23 05:25] LABS: ABG PCO2 78.8 MM HG (35-48)
[2020-12-23] MEDS: MIDAZOLAM 100 MG in DEXTROSE 5% 80 ML IV PRN ×2 (05:50→14:30)
[2020-12-23] MEDS: FAMOTIDINE 20 MG/2 ML VIAL IV SCH (09:17)
[2020-12-23] MEDS: INSULIN GLARGINE 100 UNIT/ML SUBCUT SCH (09:17)
[2020-12-23] MEDS: methylPREDNISolone SOD SUC 40 MG/1 ML VIAL IV SCH ×2 (09:18→20:17)
[2020-12-23] MEDS: ASCORBIC ACID 500 MG TABLET PO SCH ×2 (09:18→20:18)
[2020-12-23] MEDS: ZINC GLUCONATE 50 MG TABLET PO SCH (09:18)
[2020-12-23] MEDS: CETIRIZINE 10 MG TABLET PO SCH (09:18)
[2020-12-23] MEDS: CHOLECALCIFEROL 1,000 UNIT TABLET PO SCH (09:18)
[2020-12-23] MEDS ORDERED: VECURONIUM 10 MG VIAL IV ONE ×2 (21:52→21:57)
[2020-12-24] MEDS: MIDAZOLAM 100 MG in DEXTROSE 5% 80 ML IV PRN ×3 (00:10→18:28)
[2020-12-24] MEDS: METOCLOPRAMIDE 10 MG/2 ML VIAL IV SCH ×4 (00:13→18:03)
[2020-12-24] MEDS: LINEZOLID INJ 600 MG/300 ML PREMIX IV SCH ×2 (01:59→14:00)
[2020-12-24] MEDS: fentaNYL INJ 5,000 MCG in SODIUM CHLORIDE 0.9% 150 ML IV PRN ×2 (02:09→13:30)
[2020-12-24 03:45] LABS: ABG Base Excess 9.1 MMOL/L (-2.5-2.5); ABG HCO3 32.8 MMOL/L (20-26); ABG PH 7.367 (7.35-7.45); ABG PO2 64.8 MM HG (80-95); ABG TCO2 33.9 MMOL/L (23-27)
[2020-12-24 04:16] LABS: Basophils % 0.2 % (0.0-0.8); Hematocrit 27.5 VOL% (42.0-52.0); Hemoglobin 8.2 GM/DL (14.0-18.0); Immature Granulocytes % 6.3 %; Immature Granulocytes Absolute 0.95 #; Lymphocytes % 6.8 % (21.2-54.2); Mean Corpuscular HGB Conc 29.8 GM/DL (32-36); Mean Corpuscular Volume 94.8 FL (87-102); Monocytes % 3.7 % (1.7-12.7); NRBC # 0.12 10*3/uL; Platelet Count 203 T/CUMM (130-400); Red Cell Distribution Width 16.1 % (9.3-17.3); White Blood Count 15.2 T/CUMM (4-12)
[2020-12-24 04:26] LABS: Calcium 8.8 MG/DL (8.5-10.1); Osmolality,Calculated 283.2 MOS/KG (273-304); Potassium 5.1 MMOL/L (3.5-5.1)
[2020-12-24] MEDS: INSULIN LISPRO 100 UNIT/ML SUBCUT SCH ×5 (04:32→20:17)
[2020-12-24 04:50] LABS: Band Neutrophils 4 % (0-10); Lymphocytes 6 % (20-55); Platelet Estimate Normal; Segmented Neutrophils 86 % (50-85); Total Cells Counted 100
[2020-12-24 04:51] LABS: Hypochromasia Slight
[2020-12-24 07:56] LABS: Ferritin 514.6 ng/ml (26-388)
[2020-12-24] MEDS: FAMOTIDINE 20 MG/2 ML VIAL IV SCH (08:00)
[2020-12-24] MEDS: methylPREDNISolone SOD SUC 40 MG/1 ML VIAL IV SCH ×2 (08:03→20:18)
[2020-12-24] MEDS: HEPARIN DRIP 25,000 UNITS/500 ML PREMIX IV SCH ×2 (08:09→13:14)
[2020-12-24] MEDS: ZINC GLUCONATE 50 MG TABLET PO SCH (08:10)
[2020-12-24] MEDS: ASCORBIC ACID 500 MG TABLET PO SCH ×2 (08:10→20:17)
[2020-12-24] MEDS: CHOLECALCIFEROL 1,000 UNIT TABLET PO SCH (08:10)
[2020-12-24] MEDS: INSULIN GLARGINE 100 UNIT/ML SUBCUT SCH (08:10)
[2020-12-24] MEDS: CETIRIZINE 10 MG TABLET PO SCH (08:12)
[2020-12-25] MEDS: METOCLOPRAMIDE 10 MG/2 ML VIAL IV SCH ×4 (00:01→18:03)
[2020-12-25] MEDS: INSULIN LISPRO 100 UNIT/ML SUBCUT SCH ×6 (00:01→20:14)
[2020-12-25] MEDS: fentaNYL INJ 5,000 MCG in SODIUM CHLORIDE 0.9% 150 ML IV PRN ×3 (00:06→21:24)
[2020-12-25] MEDS: LINEZOLID INJ 600 MG/300 ML PREMIX IV SCH ×2 (02:27→13:23)
[2020-12-25] MEDS: MIDAZOLAM 100 MG in DEXTROSE 5% 80 ML IV PRN (04:00)
[2020-12-25 04:46] LABS: Basophils % 0.2 % (0.0-0.8); Hematocrit 29.8 VOL% (42.0-52.0); Hemoglobin 9.1 GM/DL (14.0-18.0); Immature Granulocytes % 8.3 %; Lymphocytes # 1.5 10*3/uL (1.4-4.0); Lymphocytes % 8.3 % (21.2-54.2); Mean Corpuscular HGB Conc 30.5 GM/DL (32-36); Mean Corpuscular Volume 93.4 FL (87-102); Mean Platelet Volume 11.7 FL (9.6-12.0); Monocytes % 2.7 % (1.7-12.7); Neutrophils % 80.5 % (38.7-73.9); Platelet Count 228 T/CUMM (130-400); Red Blood Count 3.19 MC/CUMM (3.8-5.5); Red Cell Distribution Width 16.9 % (9.3-17.3)
[2020-12-25 04:47] LABS: NRBC # 0.14 10*3/uL
[2020-12-25 04:58] LABS: Calcium 9.1 MG/DL (8.5-10.1); Osmolality,Calculated 286.1 MOS/KG (273-304)
[2020-12-25 05:19] LABS: ABG Base Excess 9.4 MMOL/L (-2.5-2.5); ABG HCO3 32.9 MMOL/L (20-26); ABG Oxygen Saturation 83.4 % (95-100); ABG PCO2 61.6 MM HG (35-48); ABG PH 7.382 (7.35-7.45); ABG PO2 51.8 MM HG (80-95); ABG TCO2 33.4 MMOL/L (23-27); Allen Test Positive; Pt O2 Delivery Device Ventilator
[2020-12-25 05:30] LABS: Band Neutrophils 4 % (0-10); Hypochromasia 1+; Lymphocytes 13 % (20-55); Microcytosis 1+; Platelet Estimate Adequate; Segmented Neutrophils 81 % (50-85); Total Cells Counted 100
[2020-12-25] MEDS: HEPARIN DRIP 25,000 UNITS/500 ML PREMIX IV SCH ×2 (06:17→08:35)
[2020-12-25] MEDS: FAMOTIDINE 20 MG/2 ML VIAL IV SCH (08:30)
[2020-12-25] MEDS: INSULIN GLARGINE 100 UNIT/ML SUBCUT SCH (08:35)
[2020-12-25] MEDS: ZINC GLUCONATE 50 MG TABLET PO SCH (08:36)
[2020-12-25] MEDS: ASCORBIC ACID 500 MG TABLET PO SCH ×2 (08:36→20:15)
[2020-12-25] MEDS: CETIRIZINE 10 MG TABLET PO SCH (08:36)
[2020-12-25] MEDS: CHOLECALCIFEROL 1,000 UNIT TABLET PO SCH (08:36)
[2020-12-25] MEDS: methylPREDNISolone SOD SUC 40 MG/1 ML VIAL IV SCH ×2 (08:55→20:15)
[2020-12-25] MEDS ORDERED: FUROSEMIDE 40 MG/4 ML VIAL IV ONE (10:43)
[2020-12-25] MEDS: MIDAZOLAM 100 MG in SODIUM CHLORIDE 0.9% 80 ML IV PRN ×2 (11:52→19:27)
[2020-12-25] MEDS ORDERED: SODIUM POLYSTYRENE SULFATE 15 GM/60 ML BOTTLE PO STA (14:31)
[2020-12-26] MEDS: HEPARIN DRIP 25,000 UNITS/500 ML PREMIX IV SCH ×3 (00:30→20:57)
[2020-12-26] MEDS: LINEZOLID INJ 600 MG/300 ML PREMIX IV SCH ×2 (01:01→13:47)
[2020-12-26] MEDS: METOCLOPRAMIDE 10 MG/2 ML VIAL IV SCH ×4 (01:01→18:21)
[2020-12-26] MEDS: INSULIN LISPRO 100 UNIT/ML SUBCUT SCH ×6 (01:01→20:43)
[2020-12-26] MEDS: MIDAZOLAM 100 MG in SODIUM CHLORIDE 0.9% 80 ML IV PRN ×3 (03:37→20:56)
[2020-12-26 04:28] LABS: Allen Test Positive; Pt O2 Delivery Device Ventilator
[2020-12-26 04:32] LABS: ABG Base Excess 9.8 MMOL/L (-2.5-2.5); ABG HCO3 33.4 MMOL/L (20-26); ABG Oxygen Saturation 89.5 % (95-100); ABG PCO2 62.9 MM HG (35-48); ABG PH 7.377 (7.35-7.45); ABG PO2 61.4 MM HG (80-95); ABG TCO2 34.2 MMOL/L (23-27)
[2020-12-26 05:33] LABS: Basophils % 0.1 % (0.0-0.8); Hematocrit 27.9 VOL% (42.0-52.0); Hemoglobin 8.4 GM/DL (14.0-18.0); Immature Granulocytes % 9.7 %; Immature Granulocytes Absolute 1.55 #; Lymphocytes # 0.9 10*3/uL (1.4-4.0); Lymphocytes % 5.5 % (21.2-54.2); Mean Corpuscular HGB Conc 30.1 GM/DL (32-36); Mean Corpuscular Volume 95.9 FL (87-102); Mean Platelet Volume 11.1 FL (9.6-12.0); Monocytes % 3.1 % (1.7-12.7); NRBC # 0.26 10*3/uL; Neutrophils % 81.6 % (38.7-73.9); Platelet Count 219 T/CUMM (130-400); Red Blood Count 2.91 MC/CUMM (3.8-5.5); Red Cell Distribution Width 17.3 % (9.3-17.3)
[2020-12-26 05:51] LABS: Band Neutrophils 6 % (0-10); Hypochromasia 1+; Lymphocytes 5 % (20-55); Microcytosis 1+; Nucleated Red Blood Cells 2 (0-5); Platelet Estimate Adequate; Segmented Neutrophils 88 % (50-85); Total Cells Counted 100
[2020-12-26 06:00] LABS: Calcium 8.8 MG/DL (8.5-10.1); Osmolality,Calculated 281.4 MOS/KG (273-304); Potassium 4.6 MMOL/L (3.5-5.1)
[2020-12-26] MEDS: fentaNYL INJ 5,000 MCG in SODIUM CHLORIDE 0.9% 150 ML IV PRN ×2 (06:14→15:50)
[2020-12-26] MEDS: methylPREDNISolone SOD SUC 40 MG/1 ML VIAL IV SCH ×2 (08:07→20:44)
[2020-12-26] MEDS: FAMOTIDINE 20 MG/2 ML VIAL IV SCH (08:07)
[2020-12-26] MEDS: ASCORBIC ACID 500 MG TABLET PO SCH ×2 (08:08→20:44)
[2020-12-26] MEDS: CHOLECALCIFEROL 1,000 UNIT TABLET PO SCH (08:08)
[2020-12-26] MEDS: ZINC GLUCONATE 50 MG TABLET PO SCH (08:08)
[2020-12-26] MEDS: CETIRIZINE 10 MG TABLET PO SCH (08:08)
[2020-12-26] MEDS: INSULIN GLARGINE 100 UNIT/ML SUBCUT SCH (08:59)
[2020-12-27] MEDS: METOCLOPRAMIDE 10 MG/2 ML VIAL IV SCH ×4 (00:14→18:22)
[2020-12-27] MEDS: INSULIN LISPRO 100 UNIT/ML SUBCUT SCH ×7 (00:14→23:43)
[2020-12-27] MEDS: fentaNYL INJ 5,000 MCG in SODIUM CHLORIDE 0.9% 150 ML IV PRN ×3 (01:28→22:06)
[2020-12-27] MEDS: LINEZOLID INJ 600 MG/300 ML PREMIX IV SCH (02:50)
[2020-12-27 04:34] LABS: ABG Base Excess 8.6 MMOL/L (-2.5-2.5); ABG HCO3 34.6 MMOL/L (20-26); ABG Oxygen Saturation 90.9 % (95-100); ABG PCO2 56.5 MM HG (35-48); ABG PH 7.405 (7.35-7.45); ABG PO2 64.8 MM HG (80-95); ABG TCO2 36.3 MMOL/L (23-27)
[2020-12-27] MEDS: MIDAZOLAM 100 MG in SODIUM CHLORIDE 0.9% 80 ML IV PRN ×3 (05:15→22:10)
[2020-12-27 05:42] LABS: Basophils % 0.3 % (0.0-0.8); Hematocrit 27.8 VOL% (42.0-52.0); Hemoglobin 8.7 GM/DL (14.0-18.0); Immature Granulocytes % 11.4 %; Immature Granulocytes Absolute 1.75 #; Lymphocytes # 0.7 10*3/uL (1.4-4.0); Lymphocytes % 4.2 % (21.2-54.2); Mean Corpuscular HGB Conc 31.3 GM/DL (32-36); Mean Corpuscular Volume 95.5 FL (87-102); Mean Platelet Volume 11.6 FL (9.6-12.0); Monocytes % 3.2 % (1.7-12.7); NRBC # 0.37 10*3/uL; Neutrophils % 80.9 % (38.7-73.9); Platelet Count 207 T/CUMM (130-400); Red Blood Count 2.91 MC/CUMM (3.8-5.5); Red Cell Distribution Width 18.4 % (9.3-17.3); White Blood Count 15.4 T/CUMM (4-12)
[2020-12-27 05:57] LABS: Calcium 8.7 MG/DL (8.5-10.1); Osmolality,Calculated 280.4 MOS/KG (273-304); Potassium 4.7 MMOL/L (3.5-5.1)
[2020-12-27 06:05] LABS: Band Neutrophils 10 % (0-10); Lymphocytes 3 % (20-55); Nucleated Red Blood Cells 3 (0-5); Segmented Neutrophils 84 % (50-85); Total Cells Counted 100
[2020-12-27 06:06] LABS: Hypochromasia 1+; Microcytosis 1+; Polychromasia Slight; Target Cells Slight
[2020-12-27 06:07] LABS: Platelet Estimate Normal
[2020-12-27] MEDS: HEPARIN DRIP 25,000 UNITS/500 ML PREMIX IV SCH ×2 (07:52→14:01)
[2020-12-27] MEDS: CETIRIZINE 10 MG TABLET PO SCH (08:17)
[2020-12-27] MEDS: ASCORBIC ACID 500 MG TABLET PO SCH ×2 (08:17→21:06)
[2020-12-27] MEDS: CHOLECALCIFEROL 1,000 UNIT TABLET PO SCH (08:17)
[2020-12-27] MEDS: ZINC GLUCONATE 50 MG TABLET PO SCH (08:17)
[2020-12-27] MEDS: INSULIN GLARGINE 100 UNIT/ML SUBCUT SCH (08:18)
[2020-12-27] MEDS: methylPREDNISolone SOD SUC 40 MG/1 ML VIAL IV SCH ×2 (08:19→21:07)
[2020-12-27] MEDS: FAMOTIDINE 20 MG/2 ML VIAL IV SCH (08:19)
[2020-12-27] MEDS ORDERED: FUROSEMIDE 40 MG/4 ML VIAL IV ONE (13:13)
[2020-12-28] MEDS: METOCLOPRAMIDE 10 MG/2 ML VIAL IV SCH ×4 (01:02→18:00)
[2020-12-28 03:37] LABS: ABG Base Excess 9.1 MMOL/L (-2.5-2.5); ABG HCO3 32.5 MMOL/L (20-26); ABG PCO2 64.3 MM HG (35-48); ABG PH 7.364 (7.35-7.45); ABG PO2 49.4 MM HG (80-95); ABG TCO2 33.6 MMOL/L (23-27)
[2020-12-28] MEDS: ROCURONIUM 1,000 MG in SODIUM CHLORIDE 0.9% 175 ML IV PRN ×2 (03:59→16:03)
[2020-12-28] MEDS: INSULIN LISPRO 100 UNIT/ML SUBCUT SCH ×6 (03:59→23:29)
[2020-12-28 04:21] LABS: Basophils % 0.2 % (0.0-0.8); Hematocrit 30.6 VOL% (42.0-52.0); Hemoglobin 9.2 GM/DL (14.0-18.0); Immature Granulocytes % 9.4 %; Immature Granulocytes Absolute 1.51 #; Lymphocytes # 0.8 10*3/uL (1.4-4.0); Lymphocytes % 4.9 % (21.2-54.2); Mean Corpuscular HGB Conc 30.1 GM/DL (32-36); Mean Corpuscular Volume 96.8 FL (87-102); Mean Platelet Volume 11.5 FL (9.6-12.0); Monocytes % 3.4 % (1.7-12.7); NRBC # 0.43 10*3/uL; Neutrophils % 82.1 % (38.7-73.9); Platelet Count 211 T/CUMM (130-400); Red Blood Count 3.16 MC/CUMM (3.8-5.5); Red Cell Distribution Width 19.2 % (9.3-17.3); White Blood Count 16.1 T/CUMM (4-12)
[2020-12-28 04:42] LABS: Anisocytosis 1+; Band Neutrophils 5 % (0-10); Hypochromasia 2+; Lymphocytes 10 % (20-55); Metamyelocytes 1 %; Microcytosis 1+; Myelocytes 1 %; Nucleated Red Blood Cells 4 (0-5); Polychromasia Slight; Segmented Neutrophils 78 % (50-85); Total Cells Counted 100
[2020-12-28 04:43] LABS: Stomatocytes Slight; Target Cells Slight
[2020-12-28 04:51] LABS: Osmolality,Calculated 280.2 MOS/KG (273-304); Potassium 4.8 MMOL/L (3.5-5.1)
[2020-12-28] MEDS: FAMOTIDINE 20 MG/2 ML VIAL IV SCH (08:00)
[2020-12-28] MEDS: methylPREDNISolone SOD SUC 40 MG/1 ML VIAL IV SCH ×3 (08:06→20:28)
[2020-12-28] MEDS: fentaNYL INJ 5,000 MCG in SODIUM CHLORIDE 0.9% 150 ML IV PRN ×2 (08:09→15:53)
[2020-12-28] MEDS: HEPARIN DRIP 25,000 UNITS/500 ML PREMIX IV SCH ×2 (08:21→11:12)
[2020-12-28] MEDS: INSULIN GLARGINE 100 UNIT/ML SUBCUT SCH (08:21)
[2020-12-28] MEDS: ASCORBIC ACID 500 MG TABLET PO SCH ×2 (08:21→20:14)
[2020-12-28] MEDS: CHOLECALCIFEROL 1,000 UNIT TABLET PO SCH (08:21)
[2020-12-28] MEDS: ZINC GLUCONATE 50 MG TABLET PO SCH (08:22)
[2020-12-28] MEDS: CETIRIZINE 10 MG TABLET PO SCH (08:22)
[2020-12-28] MEDS ORDERED: FUROSEMIDE 40 MG/4 ML VIAL IV ONE ×2 (11:56→14:03)
[2020-12-28] MEDS: MIDAZOLAM 100 MG in SODIUM CHLORIDE 0.9% 80 ML IV PRN ×2 (13:15→20:49)
[2020-12-28 15:42] LABS: Hematocrit 32.2 VOL% (42.0-52.0); Hemoglobin 9.6 GM/DL (14.0-18.0)
[2020-12-29] MEDS: fentaNYL INJ 5,000 MCG in SODIUM CHLORIDE 0.9% 150 ML IV PRN ×3 (00:38→17:14)
[2020-12-29] MEDS: METOCLOPRAMIDE 10 MG/2 ML VIAL IV SCH ×4 (01:54→18:51)
[2020-12-29] MEDS: MIDAZOLAM 100 MG in SODIUM CHLORIDE 0.9% 80 ML IV PRN ×4 (04:02→23:40)
[2020-12-29] MEDS: ROCURONIUM 1,000 MG in SODIUM CHLORIDE 0.9% 175 ML IV PRN ×2 (04:03→15:57)
[2020-12-29] MEDS: methylPREDNISolone SOD SUC 40 MG/1 ML VIAL IV SCH ×4 (04:06→21:08)
[2020-12-29 04:27] LABS: ABG Base Excess 9.1 MMOL/L (-2.5-2.5); ABG HCO3 32.8 MMOL/L (20-26); ABG Oxygen Saturation 91.6 % (95-100); ABG PH 7.396 (7.35-7.45); ABG PO2 64.5 MM HG (80-95)
[2020-12-29 05:25] LABS: Basophils % 0.3 % (0.0-0.8); Eosinophils % 0.1 % (0.00-10.9); Hematocrit 27.6 VOL% (42.0-52.0); Hemoglobin 8.3 GM/DL (14.0-18.0); Immature Granulocytes % 7.5 %; Immature Granulocytes Absolute 1.13 #; Lymphocytes # 0.8 10*3/uL (1.4-4.0); Mean Corpuscular HGB Conc 30.1 GM/DL (32-36); Mean Corpuscular Volume 96.8 FL (87-102); Mean Platelet Volume 12.2 FL (9.6-12.0); Monocytes % 4.1 % (1.7-12.7); NRBC # 0.74 10*3/uL; Red Blood Count 2.85 MC/CUMM (3.8-5.5); Red Cell Distribution Width 19.8 % (9.3-17.3)
[2020-12-29 05:27] LABS: Platelet Count 130 T/CUMM (130-400)
[2020-12-29 05:31] LABS: Calcium 8.8 MG/DL (8.5-10.1); Osmolality,Calculated 284.1 MOS/KG (273-304); Potassium 4.9 MMOL/L (3.5-5.1)
[2020-12-29] MEDS: INSULIN LISPRO 100 UNIT/ML SUBCUT SCH ×6 (05:39→20:01)
[2020-12-29 07:22] LABS: Band Neutrophils 6 % (0-10); Eosinophils 1 % (0-10); Lymphocytes 6 % (20-55); Nucleated Red Blood Cells 6 (0-5); Platelet Estimate Normal; Segmented Neutrophils 86 % (50-85); Total Cells Counted 100
[2020-12-29 07:23] LABS: Hypochromasia Slight
[2020-12-29] MEDS: CETIRIZINE 10 MG TABLET PO SCH (09:40)
[2020-12-29] MEDS: ZINC GLUCONATE 50 MG TABLET PO SCH (09:40)
[2020-12-29] MEDS: CHOLECALCIFEROL 1,000 UNIT TABLET PO SCH (09:40)
[2020-12-29] MEDS: ASCORBIC ACID 500 MG TABLET PO SCH ×2 (09:40→20:01)
[2020-12-29] MEDS: INSULIN GLARGINE 100 UNIT/ML SUBCUT SCH (09:40)
[2020-12-29] MEDS: FAMOTIDINE 20 MG/2 ML VIAL IV SCH (09:42)
[2020-12-29 13:55] LABS: Hematocrit 27.7 VOL% (42.0-52.0); Hemoglobin 8.2 GM/DL (14.0-18.0)
[2020-12-30] MEDS: METOCLOPRAMIDE 10 MG/2 ML VIAL IV SCH ×4 (00:13→19:07)
[2020-12-30] MEDS: INSULIN LISPRO 100 UNIT/ML SUBCUT SCH ×6 (00:14→20:43)
[2020-12-30] MEDS: fentaNYL INJ 5,000 MCG in SODIUM CHLORIDE 0.9% 150 ML IV PRN ×3 (01:24→18:30)
[2020-12-30] MEDS: ROCURONIUM 1,000 MG in SODIUM CHLORIDE 0.9% 175 ML IV PRN ×2 (02:23→14:58)
[2020-12-30] MEDS: methylPREDNISolone SOD SUC 40 MG/1 ML VIAL IV SCH ×4 (03:27→21:33)
[2020-12-30 04:01] LABS: Basophils % 0.1 % (0.0-0.8); Hematocrit 27.5 VOL% (42.0-52.0); Hemoglobin 8.1 GM/DL (14.0-18.0); Immature Granulocytes % 5.8 %; Immature Granulocytes Absolute 0.86 #; Lymphocytes # 0.9 10*3/uL (1.4-4.0); Mean Corpuscular HGB Conc 29.5 GM/DL (32-36); Mean Corpuscular Volume 98.9 FL (87-102); Mean Platelet Volume 12.1 FL (9.6-12.0); Monocytes % 3.8 % (1.7-12.7); NRBC # 1.39 10*3/uL; Neutrophils % 84.3 % (38.7-73.9); Platelet Count 107 T/CUMM (130-400); Red Blood Count 2.78 MC/CUMM (3.8-5.5); White Blood Count 14.9 T/CUMM (4-12)
[2020-12-30 04:16] LABS: Calcium 8.5 MG/DL (8.5-10.1); Potassium 4.8 MMOL/L (3.5-5.1)
[2020-12-30 04:17] LABS: Allen Test Positive; Pt O2 Delivery Device Ventilator
[2020-12-30 04:18] LABS: ABG Base Excess 8.6 MMOL/L (-2.5-2.5); ABG HCO3 32.2 MMOL/L (20-26); ABG Oxygen Saturation 87.8 % (95-100); ABG PCO2 65.6 MM HG (35-48); ABG PH 7.352 (7.35-7.45); ABG PO2 59.1 MM HG (80-95); ABG TCO2 33.3 MMOL/L (23-27)
[2020-12-30 04:23] LABS: Ferritin 548.1 ng/mL (26-388)
[2020-12-30 05:49] LABS: Anisocytosis 3+; Band Neutrophils 51 % (0-10); Lymphocytes 5 % (20-55); Macrocytosis 1+; Metamyelocytes 5 %; Nucleated Red Blood Cells 17 (0-5); Platelet Estimate Adequate; Segmented Neutrophils 37 % (50-85); Smudge Cells Few; Target Cells Few; Total Cells Counted 100
[2020-12-30] MEDS: MIDAZOLAM 100 MG in SODIUM CHLORIDE 0.9% 80 ML IV PRN ×3 (06:21→20:44)
[2020-12-30] MEDS: INSULIN GLARGINE 100 UNIT/ML SUBCUT SCH (09:19)
[2020-12-30] MEDS: FAMOTIDINE 20 MG/2 ML VIAL IV SCH (09:20)
[2020-12-30] MEDS: ZINC GLUCONATE 50 MG TABLET PO SCH (09:20)
[2020-12-30] MEDS: ASCORBIC ACID 500 MG TABLET PO SCH ×2 (09:20→20:43)
[2020-12-30] MEDS: CHOLECALCIFEROL 1,000 UNIT TABLET PO SCH (09:20)
[2020-12-30] MEDS: ENOXAPARIN 80 MG/0.8 ML SYRINGE SUBCUT SCH ×2 (10:28→21:33)
[2020-12-30] MEDS: CETIRIZINE 10 MG TABLET PO SCH (10:28)
[2020-12-30 13:58] LABS: Hematocrit 26.4 VOL% (42.0-52.0); Hemoglobin 7.8 GM/DL (14.0-18.0)
[2020-12-30 23:36] LABS: ABG Base Excess 8.4 MMOL/L (-2.5-2.5); ABG HCO3 31.9 MMOL/L (20-26); ABG Oxygen Saturation 76.5 % (95-100); ABG PCO2 65.1 MM HG (35-48); ABG PH 7.349 (7.35-7.45); ABG PO2 45.3 MM HG (80-95); ABG TCO2 33.6 MMOL/L (23-27); Allen Test Positive; Pt O2 Delivery Device Ventilator
[2020-12-31] MEDS: INSULIN LISPRO 100 UNIT/ML SUBCUT SCH ×4 (00:37→11:55)
[2020-12-31] MEDS: METOCLOPRAMIDE 10 MG/2 ML VIAL IV SCH ×3 (00:38→15:15)
[2020-12-31] MEDS: ROCURONIUM 1,000 MG in SODIUM CHLORIDE 0.9% 175 ML IV PRN (02:06)
[2020-12-31] MEDS: fentaNYL INJ 5,000 MCG in SODIUM CHLORIDE 0.9% 150 ML IV PRN ×2 (02:44→10:13)
[2020-12-31 04:29] LABS: Basophils % 0.2 % (0.0-0.8); Hematocrit 27.5 VOL% (42.0-52.0); Hemoglobin 7.9 GM/DL (14.0-18.0); Immature Granulocytes % 3.7 %; Immature Granulocytes Absolute 0.44 #; Lymphocytes # 0.8 10*3/uL (1.4-4.0); Lymphocytes % 6.4 % (21.2-54.2); Mean Corpuscular HGB Conc 28.7 GM/DL (32-36); Mean Corpuscular Volume 101.1 FL (87-102); Mean Platelet Volume 11.5 FL (9.6-12.0); Monocytes % 3.6 % (1.7-12.7); NRBC # 1.36 10*3/uL; Neutrophils % 86.1 % (38.7-73.9); Red Blood Count 2.72 MC/CUMM (3.8-5.5); Red Cell Distribution Width 21.3 % (9.3-17.3)
[2020-12-31 04:31] LABS: Platelet Count 92 T/CUMM (130-400)
[2020-12-31 04:48] LABS: Band Neutrophils 4 % (0-10); Calcium 8.5 MG/DL (8.5-10.1); Hypochromasia 1+; Lymphocytes 5 % (20-55); Nucleated Red Blood Cells 13 (0-5); Osmolality,Calculated 289.7 MOS/KG (273-304); Potassium 4.6 MMOL/L (3.5-5.1); Segmented Neutrophils 87 % (50-85); Total Cells Counted 100
[2020-12-31 04:49] LABS: Macrocytosis 1+; Platelet Estimate Decreased; Polychromasia Slight
[2020-12-31 04:52] LABS: Ferritin 527.9 ng/mL (26-388)
[2020-12-31 05:05] LABS: ABG Base Excess 8.5 MMOL/L (-2.5-2.5); ABG HCO3 32.1 MMOL/L (20-26); ABG Oxygen Saturation 86.4 % (95-100); ABG PCO2 65.7 MM HG (35-48); ABG PH 7.346 (7.35-7.45); ABG PO2 56.4 MM HG (80-95); ABG TCO2 33.6 MMOL/L (23-27); Allen Test Positive; Pt O2 Delivery Device Ventilator
[2020-12-31] MEDS: methylPREDNISolone SOD SUC 40 MG/1 ML VIAL IV SCH ×2 (05:12→09:29)
[2020-12-31] MEDS: MIDAZOLAM 100 MG in SODIUM CHLORIDE 0.9% 80 ML IV PRN ×2 (05:46→11:13)
[2020-12-31] MEDS ORDERED: ENOXAPARIN 40 MG/0.4 ML SYRINGE SUBCUT SCH (09:00)
[2020-12-31] MEDS: INSULIN GLARGINE 100 UNIT/ML SUBCUT SCH (09:29)
[2020-12-31] MEDS: FAMOTIDINE 20 MG/2 ML VIAL IV SCH (09:30)
[2020-12-31] MEDS: ASCORBIC ACID 500 MG TABLET PO SCH (09:30)
[2020-12-31] MEDS: CETIRIZINE 10 MG TABLET PO SCH (09:30)
[2020-12-31] MEDS: ZINC GLUCONATE 50 MG TABLET PO SCH (09:30)
[2020-12-31] MEDS: CHOLECALCIFEROL 1,000 UNIT TABLET PO SCH (09:30)
[2020-12-31] MEDS: hydrALAZINE 20 MG/1 ML VIAL IV PRN (11:00)
[2020-12-31 11:13] VITALS: BP 187/97
[2020-12-31] MEDS ORDERED: MORPHINE 2 MG/1 ML SYRINGE IV PRN (11:18)
[2020-12-31] MEDS ORDERED: MEROPENEM 500 MG in SODIUM CHLORIDE 0.9% 100 ML IV SCH (13:30)
== END 2020-12-31 13:35 | disposition expired | DRG 207 ==
LOC: N.ED 18:55 → N.EDINP 23:23 → SUATTDRO 23:23 → N.CC 11-27 07:13
PROVIDERS: ADMIT Family Medicine; ATTEND Internal Medicine